=== PATIENT | female | born 1985 ===

== ENCOUNTER 2017-08-21 21:40 | Emergency (ER) | payer OTHER, SELFPAY ==
[2017-08-21 21:41] VITALS: BMI 34.6
[2017-08-21 22:07] VITALS: RESP 16; O2SAT 99
[2017-08-21 23:10] LABS: SQUAMOUS EPITHIAL 3 /hpf (0-5); URINE BACTERIA RARE (<OCC); URINE BILIRUBIN NEGATIVE (NEGATIVE); URINE BLOOD MODERATE (NEGATIVE); URINE CLARITY SLIGHTY-CLOUDY (Clear); URINE COLOR YELLOW (YELLOW); URINE GLUCOSE (UA) NEG (Normal); URINE LEUKOCYTE ESTERASE MOD Leu/uL (Negative); URINE PROTEIN NEGATIVE (NEGATIVE); URINE UROBILINOGEN 0.2-1.0 mg/dL (0.2-1.0)
--- NOTE | 2017-08-21 23:48 | ED PDOC ---
HPI: Female Pain Time Seen by Provider: 08/21/17 22:29 Chief Complaint (Nursing): Female Genitourinary Chief Complaint (Provider): Vaginal spotting History Per: Patient History/Exam Limitations: no limitations Onset/Duration Of Symptoms: Hrs Current Symptoms Are (Timing): Still Present Associated Symptoms: denies: Fever, Chills, Nausea, Vomiting, Back Pain, Chest Pain, Urinary Symptoms Alleviating Factors: None Additional History Per: Patient Additional Complaint(s): 32yo female, with EGA of 6wks, presents to ER for evaluation of vaginal bleeding since 9pm today. Patient states she had gone to her bathroom, which was poorly lit, and she tripped and fell, landing on her back and right side. She then noted mild vaginal spotting and has abdominal pain and right flank pain. She denies any associated head injury or loss of consciousness. She reports the spotting is mild and denies any clots or discharge. She offers no other medical complaints. PMD: None Abnormal Vaginal Bleeding: Yes : 3 Para: 2 Past Medical History Reviewed: Historical Data, Nursing Documentation, Vital Signs Vital Signs: Last Vital Signs Temp 98.3 F 08/21/17 22:02 Pulse 81 08/21/17 22:02 Resp 16 08/21/17 22:02 BP 121/76 08/21/17 22:02 Pulse Ox 99 08/21/17 22:02 - Medical History PMH: Anemia Denies: HIV, Chronic Kidney Disease - Surgical History Surgical History: Appendectomy - Family History Family History: States: No Known Family Hx, Unknown Family Hx - Immunization History Hx Tetanus Toxoid Vaccination: No Hx Influenza Vaccination: No Hx Pneumococcal Vaccination: No - Home Medications Home Medications: Ambulatory Orders Medication Instructions Recorded Pnv with Ca,No.72/Iron/FA 1 tab PO DAILY #90 tab 08/15/14 [ Vitamins Plus] [id number] [ Plus 1 tab PO DAILY #30 tab 08/27/14 W/ Iron] Docusate [Colace] 100 mg PO BID PRN #30 cap 03/18/15 Ibuprofen [Motrin] 400 mg PO Q6 PRN #30 tab 03/18/15 - Allergies Allergies/Adverse Reactions: Allergies Allergy/AdvReac Type Severity Reaction Status Date / Time No Known Allergies Allergy Verified 03/16/15 10:32 Review of Systems ROS Statement: Except As Marked, All Systems Reviewed And Found Negative Constitutional: Negative for: Fever, Chills Gastrointestinal: Positive for: Abdominal Pain, Other (right flank pain) Genitourinary Female: Positive for: Vaginal Bleeding (spotting, mild). Negative for: Vaginal Discharge Neurological: Negative for: Other (head injury, loc) Physical Exam - Reviewed Nursing Documentation Reviewed: Yes Vital Signs Reviewed: Yes - Physical Exam Appears: Positive for: Non-toxic, No Acute Distress Head Exam: Positive for: ATRAUMATIC, NORMAL INSPECTION, NORMOCEPHALIC Skin: Positive for: Normal Color, Warm Eye Exam: Positive for: Normal appearance, EOMI Neck: Positive for: Normal, Supple Cardiovascular/Chest: Positive for: Regular Rate, Rhythm Respiratory: Positive for: Normal Breath Sounds Gastrointestinal/Abdominal: Positive for: Normal Exam, Soft. Negative for: Tenderness, Mass, Guarding Back: Positive for: Normal Inspection Extremity: Positive for: Normal ROM. Negative for: Deformity Neurologic/Psych: Positive for: Alert, Oriented. Negative for: Motor/Sensory Deficits - Laboratory Results Result Diagrams: 08/21/17 23:47 - ECG O2 Sat by Pulse Oximetry: 99 (RA) Pulse Ox Interpretation: Normal Medical Decision Making Medical Decision Making: Impression: Vaginal bleeding, fall in setting of Plan: -- Labs -- Urinalysis -- US OB Transvaginal Time: 3 US OB Transvaginal FINDINGS: Gestation: Single live intrauterine gestation. heart rate of 169 beats per minute. [place]-rump length of 2.0 cm, correlating with gestational age of 8 weeks 4 days. Uterus/cervix: No subchorionic hemorrhage. Closed cervix. Ovaries: Normal ovaries. No adnexal masses. Free fluid: No significant free fluid. IMPRESSION: 1. Single live intrauterine gestation. Time: 216 patient reports improvement in pain after taking Tylenol. Patient informed of US results and expresses undertsanding; instructed to follow up with OBGYn in 2- 3 days. Stable for discharge home. Diagnosis: Threatened miscarriage Scribe Attestation: Documented by Jillian Zuluaga, acting as a scribe for Kwesi Dickson MD Provider Scribe Attestation: All medical record entries made by the Scribe were at my direction and personally dictated by me. I have reviewed the chart and agree that the record accurately reflects my personal performance of the history, physical exam, medical decision making, and the department course for this patient. I have also personally directed, reviewed, and agree with the discharge instructions and disposition. Disposition - Clinical Impression Clinical Impression: Threatened - Disposition [facility] Disposition: Routine/Home Disposition Time: 02:17 Condition: STABLE Instructions: Bleeding With Forms: [facility] (Yi) Print Language: TURKISH
[2017-08-21 23:54] LABS: BASO # 0.1 K/uL (0.0-0.2); BASO % 0.9 % (0.0-2.0); EOS # 0.5 K/uL (0.0-0.7); EOS % 4.3 % (0.0-4.0); HEMOGLOBIN 11.5 g/dL (12.0-16.0); LYMPH # 2.4 K/uL (1.0-4.3); LYMPH % 22.5 % (20.0-40.0); MEAN CELL VOLUME 77.8 fl (81.0-99.0); MEAN CORPUSCULAR HEMOGLOBIN 25.4 pg (27.0-31.0); MEAN CORPUSCULAR HGB CONC 32.6 g/dL (33.0-37.0); MEAN PLATELET VOLUME 9.3 fl (7.2-11.7); MONO # 0.7 K/uL (0.0-0.8); MONO % 6.4 % (0.0-10.0); NEUT % 65.9 % (50.0-75.0); RBC 4.54 Mil/uL (3.80-5.20); RED CELL DISTRIBUTION WIDTH 16.3 % (11.5-14.5); WHITE BLOOD COUNT 10.7 K/uL (4.8-10.8)
--- NOTE | 2017-08-22 00:05 | US ---
EXAM: US , Transvaginal CLINICAL HISTORY: 32 years old, female; Signs and symptoms; Lmp or gestational age (in weeks): 06/21/17; Antepartum complications; Hemorrhage; ; Additional info: Preg vag bld TECHNIQUE: Real-time transvaginal obstetrical ultrasound of the maternal pelvis and a first trimester with image documentation. Transvaginal imaging was used for better evaluation of the fetus and adnexa. COMPARISON: No relevant prior studies available. FINDINGS: Gestation: Single live intrauterine gestation. heart rate of 169 beats per minute. [place]-rump length of 2.0 cm, correlating with gestational age of 8 weeks 4 days. Uterus/cervix: No subchorionic hemorrhage. Closed cervix. Ovaries: Normal ovaries. No adnexal masses. Free fluid: No significant free fluid. IMPRESSION: 1. Single live intrauterine gestation.
[2017-08-22 03:20] VITALS: BP 122/76; PULSE 82; TEMP 98.1
== END 2017-08-22 02:24 | disposition home or self-care (01) ==
LOC: H.ER 21:40
DX: O20.0 Threatened abortion (principal); Z3A.08 8 weeks gestation of pregnancy

== ENCOUNTER 2017-11-21 16:28 | Emergency (ER) | payer SELFPAY ==
[2017-11-21 17:39] VITALS: BMI 35.4
[2017-11-21 18:39] LABS: SQUAMOUS EPITHIAL 5 /hpf (0-5); URINE BILIRUBIN NEGATIVE (NEGATIVE); URINE BLOOD SMALL (NEGATIVE); URINE CLARITY CLOUDY (Clear); URINE COLOR YELLOW (YELLOW); URINE GLUCOSE (UA) NEG (Normal); URINE LEUKOCYTE ESTERASE TRACE Leu/uL (Negative); URINE PROTEIN NEGATIVE (NEGATIVE); URINE UROBILINOGEN 0.2-1.0 mg/dL (0.2-1.0)
--- NOTE | 2017-11-21 18:50 | US ---
Ob transvaginal Indication: Cervical length Comparison: Ob transvaginal ultrasound performed 08/21/17 Technique: Real-time ultrasound was performed through the pelvis. Findings: There is a single living fetus in breaching presentation. Amniotic fluid volume is within normal limits. Posterior placenta. The placenta is not previa. There are no adnexal masses or cysts evident. Cervical length measures approximately 5.0 cm. Measurements and calculations: Fetus has a composite sonographic age of 22 weeks 6 days. This calculation is based on the biparietal diameter, head circumference, abdominal circumference, and femur length. Estimated heart rate 147.2 beats per min. Impression: Cervical length measures approximately 5.0 cm. Single living fetus with a composite sonographic age of 22 weeks 6 days. Estimated heart rate 147.2 beats per min. The study was performed for the emergent evaluation of pain/bleeding, and the whole anatomic survey of the fetus was not performed. This should be performed on an outpatient elective basis as clinically warranted.
--- NOTE | 2017-11-21 19:48 | OBHP ---
Datetime: 11/21/2017 17:15 IP Adm Impression: , intrauterine IP Admit Plan: Observation/Evaluation Admit Comment, IP Provider: HPI: 32 y/o with EGA 21.6 weeks, EDC 03/28/18 who presents sent from the [facility] due to c/o vaginal spotting x 2, yesterday evening and today AM, also patient c/o "pelv ic heaviness" since yesterday. Denies CONTX, LOF. Reports last sexual activity 4 days ago, Positive F M today. OBGYN: Patient reports Hx of delivery at 36 wks and approximately 32 wks in her previous p regnancies. Recent Cervicitis 2/2 Chlamydia infection in this , and patient states that she has not started treatment yet, but Rx in pharmacy for her and partner to get tx. ROS: as per HPI care provider: Dr Almanzar at [facility] PMH: Denies FMH: None Social: Denies Tob/ETOH/RecDrug SURG: Appendectomy Allergies: NKA MEDS: PNV, ASA, DHL LABS: Positive Chlamydia NAAT, HIV negative, HBsAg negative, Rubella no results, RPR neg, ABORh O+ A/P 32 y/o with EGA 21.6 wks, EDC 03/28/18 with vaginal spotting since yesterday and cervicit is 2/2 to Chlamydia infection, also this patient has hx of 2 deliveries. Impression: R/o labor vs vaginal spotting 2/2 cervicitis -U/A stat -Transvaginal US for Cervical length eval -Monitor maternal CONTX and FHR Case discussed with attending Dr Luna. Demi Cordero MD PGY1 Addendum: I saw examined patient presentation. Patient with cervicitis and chlamydia infection. Patient tiffany es any complaints at this time other than spotting. Cervical length normal. Patient has prescription for antibiotics. Patient will follow up in clinic this week. Patient given labor and bleeding precautions. Cheryl FHR - Baseline A Provider: 140s via sono Comments, ACOG Physical Exam: GEN: NAD HEENT: Normocephalic, EOMI RESP: CTA b/l CV: RRR, no murmurs noted ABD: Gravid, soft, nontender LE: No edema. IP Hx Assessment: The History has been Reviewed and is Current IP Chief Complaint: Vaginal bleeding
[2017-11-22 00:52] VITALS: BP 119/79; PULSE 114; O2SAT 99
== END 2017-11-21 19:25 | disposition home or self-care (01) ==
LOC: H.EROB2 16:28
DX: O26.852 Spotting complicating pregnancy, second trimester (principal); O09.32 Supervision of pregnancy with insufficient antenatal care, second trimester; Z3A.21 21 weeks gestation of pregnancy; O23.512 Infections of cervix in pregnancy, second trimester; O23.592 Infection of other part of genital tract in pregnancy, second trimester; A56.01 Chlamydial cystitis and urethritis

== ENCOUNTER 2018-01-05 02:00 | Emergency (ER) | payer SELFPAY ==
[2018-01-05 02:16] VITALS: BMI 36.8
[2018-01-05] MEDS ORDERED: Albuterol-Ipratrop 3 mg / 0.5 (3 ml) UD INH STA ×3 (02:19)
--- NOTE | 2018-01-05 02:38 | ED PDOC ---
HPI: SOB/CHF/COPD Time Seen by Provider: 01/05/18 02:05 Chief Complaint (Nursing): Respiratory Distress Chief Complaint (Provider): Wheezing History Per: Patient History/Exam Limitations: no limitations Onset/Duration Of Symptoms: Days (x3) Current Symptoms Are (Timing): Still Present Current Respiratory Medications: Albuterol Additional Complaint(s): 32 y/o female is 28 weeks with a PMHx of asthma presents to the ED stating she has been having wheezing and a dry cough for the past three days. Patient additionally reports of using an inhaler with no relief. Patient additionally reports of hearing wheezing in her chest. Denies fevers, chills, abdominal pain, vaginal bleeding and vaginal discharge. Patient reports of feeling her baby moving. PMD: Non [facility] Provider Past Medical History Reviewed: Historical Data, Nursing Documentation, Vital Signs Vital Signs: Last Vital Signs Temp 98.5 F 01/05/18 02:16 Pulse 104 H 01/05/18 02:16 Resp 20 01/05/18 02:16 BP 128/75 01/05/18 02:16 Pulse Ox 92 L 01/05/18 02:16 - Medical History PMH: Anemia Denies: HIV, Chronic Kidney Disease - Surgical History Surgical History: Appendectomy - Family History Family History: States: Unknown Family Hx - Immunization History Hx Tetanus Toxoid Vaccination: No Hx Influenza Vaccination: No Hx Pneumococcal Vaccination: No - Home Medications Home Medications: Ambulatory Orders Medication Instructions Recorded Pnv with Ca,No.72/Iron/FA 1 tab PO DAILY #90 tab 08/15/14 [ Vitamins Plus] [id number] [ Plus 1 tab PO DAILY #30 tab 08/27/14 W/ Iron] Docusate [Colace] 100 mg PO BID PRN #30 cap 03/18/15 Ibuprofen [Motrin] 400 mg PO Q6 PRN #30 tab 03/18/15 Prednisone [Deltasone] 40 mg PO DAILY 3 Days #6 tablet 01/05/18 - Allergies Allergies/Adverse Reactions: Allergies Allergy/AdvReac Type Severity Reaction Status Date / Time No Known Allergies Allergy Verified 01/05/18 02:16 Review of Systems ROS Statement: Except As Marked, All Systems Reviewed And Found Negative Constitutional: Negative for: Fever, Chills Respiratory: Positive for: Cough, Wheezing Gastrointestinal: Negative for: Abdominal Pain Genitourinary Female: Negative for: Vaginal Discharge, Vaginal Bleeding Physical Exam - Reviewed Nursing Documentation Reviewed: Yes Vital Signs Reviewed: Yes - Physical Exam Appears: Positive for: No Acute Distress Head Exam: Positive for: ATRAUMATIC, NORMOCEPHALIC Skin: Positive for: Normal Color, Warm, Dry Eye Exam: Positive for: Normal appearance, EOMI, PERRL Neck: Positive for: Normal, Painless ROM Cardiovascular/Chest: Positive for: Regular Rate, Rhythm. Negative for: Murmur Respiratory: Positive for: Wheezing (BILATERAL). Negative for: Respiratory Distress Gastrointestinal/Abdominal: Positive for: Other (Gravid Uterus). Negative for: Tenderness Back: Positive for: Normal Inspection. Negative for: L CVA Tenderness, R CVA Tenderness Extremity: Positive for: Normal ROM. Negative for: Pedal Edema, Deformity Neurologic/Psych: Positive for: Alert, Oriented. Negative for: Motor/Sensory Deficits - ECG O2 Sat by Pulse Oximetry: 92 (RA) Pulse Ox Interpretation: Normal Medical Decision Making Medical Decision Making: Time: 0220 A/P: 32 y/o female with mild asthma exacerbation and -- Not concerned for pulmonary embolism, pneumonia, pneumothorax and any other acute illnesses. -- Patient speaking full sentences, no respiratory distress -- Duoneb 3mg/0.5mg (3ml) UD 3 ml INH -- Duoneb 3mg/0.5mg (3ml) UD 3 ml INH -- Duoneb 3mg/0.5mg (3ml) UD 3 ml INH -- PredniSONE 40 mg PO -- Peak Flow Pre/Post Tx 315AM --Patient is feeling much better --Vitals improved --Will discharge with prednisone --Advised patient to followup with OB and PMD --Very well appearing upon discharge Scribe Attestation: Documented by Kiesha Newby, acting as a scribe for Bob Solano MD. Provider Scribe Attestation: All medical record entries made by the Scribe were at my direction and personally dictated by me. I have reviewed the chart and agree that the record accurately reflects my personal performance of the history, physical exam, medical decision making, and the department course for this patient. I have also personally directed, reviewed, and agree with the discharge instructions and disposition. Disposition - Clinical Impression Clinical Impression: Asthma exacerbation - Patient ED Disposition Is Patient to be Admitted: No - Disposition Referrals: [facility] [Outside] [facility] [Outside] Disposition: Routine/Home Disposition Time: 03:19 Condition: STABLE Prescriptions: Prednisone [Deltasone] 40 mg PO DAILY 3 Days #6 tablet Instructions: Asthma in Adults Forms: [employer] (Romanian) Print Language: NIGERIEN
[2018-01-05 03:21] VITALS: BP 122/74; PULSE 102; RESP 18; TEMP 98.4
[2018-01-05 03:22] VITALS: O2SAT 98
== END 2018-01-05 03:28 | disposition home or self-care (01) ==
LOC: H.ER 02:00
DX: O99.513 Diseases of the respiratory system complicating pregnancy, third trimester (principal); J45.901 Unspecified asthma with (acute) exacerbation; J44.9 Chronic obstructive pulmonary disease, unspecified; Z3A.28 28 weeks gestation of pregnancy

== ENCOUNTER 2018-01-21 22:39 | Observation (INO) | payer SELFPAY ==
[2018-01-21 22:40] VITALS: BMI 36.8
[2018-01-21] MEDS ORDERED: Albuterol 0.042% Inhal Sol (1.25 mg/3 mL) UD ONE (23:49)
[2018-01-22] MEDS ORDERED: Albuterol-Ipratrop 3 mg / 0.5 (3 ml) UD IH STA ×3 (00:11→02:56)
[2018-01-22] MEDS ORDERED: Albuterol 0.083% Inhal Sol (2.5 mg/3 mL) UD INH ONE ×2 (00:12→23:21)
--- NOTE | 2018-01-22 00:15 | ED PDOC ---
HPI: SOB/CHF/COPD Time Seen by Provider: 01/21/18 23:47 Chief Complaint (Nursing): Cough, Cold, Congestion Chief Complaint (Provider): cough, sob History Per: Patient, Lead Cook (jason #[id number]) History/Exam Limitations: no limitations Onset/Duration Of Symptoms: Days (2) Current Symptoms Are (Timing): Still Present Initiating Event: Out Of Medications Current Respiratory Medications: Albuterol Additional Complaint(s): 32 y/o female history of asthma, approximately 30 weeks gestation, presents for evaluation of cough and shortness of breath x 2 days. Patient states her Albuterol inhaler stopped working today. States symptoms similar to previous asthma flare-ups, and that the medications that she was given when she came to ED a few weeks ago helped her symptoms. Denies fever, nasal congestion/discharge, chest pain, palpitations, leg pain/swelling. Patient also reports lower pelvis pain radiating to back that started just now. Denies nausea/vomiting, vaginal bleeding/discharge. Past Medical History Reviewed: Historical Data, Nursing Documentation, Vital Signs Vital Signs: Last Vital Signs Temp 98.7 F 01/21/18 23:27 Pulse 121 H 01/21/18 23:27 Resp 22 01/21/18 23:27 BP 134/81 01/21/18 23:27 Pulse Ox 94 L 01/21/18 23:27 - Medical History PMH: Anemia, Asthma Denies: HIV, Chronic Kidney Disease - Surgical History Surgical History: Appendectomy - Family History Family History: States: Unknown Family Hx - Immunization History Hx Tetanus Toxoid Vaccination: No Hx Influenza Vaccination: No Hx Pneumococcal Vaccination: No - Home Medications Home Medications: Ambulatory Orders Medication Instructions Recorded Pnv with Ca,No.72/Iron/FA 1 tab PO DAILY #90 tab 08/15/14 [ Vitamins Plus] [id number] [ Plus 1 tab PO DAILY #30 tab 08/27/14 W/ Iron] Docusate [Colace] 100 mg PO BID PRN #30 cap 03/18/15 Ibuprofen [Motrin] 400 mg PO Q6 PRN #30 tab 03/18/15 Prednisone [Deltasone] 40 mg PO DAILY 3 Days #6 tablet 01/05/18 - Allergies Allergies/Adverse Reactions: Allergies Allergy/AdvReac Type Severity Reaction Status Date / Time No Known Allergies Allergy Verified 01/21/18 23:27 Review of Systems ROS Statement: Except As Marked, All Systems Reviewed And Found Negative Respiratory: Positive for: Cough, Shortness of Breath, Wheezing Physical Exam - Reviewed Nursing Documentation Reviewed: Yes Vital Signs Reviewed: Yes - Physical Exam Appears: Positive for: Well, Non-toxic, Uncomfortable (audible wheezing) Head Exam: Positive for: ATRAUMATIC, NORMAL INSPECTION, NORMOCEPHALIC Skin: Positive for: Normal Color Eye Exam: Positive for: Normal appearance ENT: Positive for: Normal ENT Inspection Cardiovascular/Chest: Positive for: Regular Rate, Rhythm Respiratory: Positive for: Wheezing (diffuse expiratory wheezing) Gastrointestinal/Abdominal: Positive for: Bowel Sounds, Soft, Tenderness (suprapubic, LLQ) Back: Positive for: Normal Inspection Extremity: Positive for: Normal ROM Neurologic/Psych: Positive for: Alert, Oriented (x3) - Laboratory Results Result Diagrams: 01/22/18 04:06 - ECG ECG: Positive for: Viewed By Me (reviewed by ED attending) ECG Rhythm: Positive for: Sinus Tachycardia O2 Sat by Pulse Oximetry: 94 - Progress ED Course And Treament: duonebs, prednisone 60mg PO On re-eval, patient reports little improvement of symptoms. Diffuse wheezing still noted States lower abdominal pain nearly resolved 3:[address] Delgado, Target Developer on-call; states if pain improved patient does not require emergent monitoring at this time, can be called on consult if pain returns or worsens IV rocephin, IV zithromax doses ordered Case discussed with Dr. Long, Hospitalist on-call, for placement in observation Disposition - Clinical Impression Clinical Impression: Asthma exacerbation, Bronchitis - Disposition Disposition Time: 04:00 Condition: FAIR
[2018-01-22] MEDS ORDERED: Albuterol-Ipratrop 3 mg / 0.5 (3 ml) UD ONE (02:52)
[2018-01-22 04:16] LABS: BASO # 0.1 K/uL (0.0-0.2); BASO % 0.6 % (0.0-2.0); EOS # 0.3 K/uL (0.0-0.7); EOS % 1.6 % (0.0-4.0); LYMPH # 1.3 K/uL (1.0-4.3); LYMPH % 7.3 % (20.0-40.0); MEAN CELL VOLUME 80.6 fl (81.0-99.0); MEAN CORPUSCULAR HEMOGLOBIN 27.2 pg (27.0-31.0); MEAN CORPUSCULAR HGB CONC 33.7 g/dL (33.0-37.0); MEAN PLATELET VOLUME 9.4 fl (7.2-11.7); MONO # 0.3 K/uL (0.0-0.8); MONO % 1.7 % (0.0-10.0); NEUT # 15.4 K/uL (1.8-7.0); NEUT % 88.8 % (50.0-75.0); PLATELET COUNT 273 K/uL (130-400); RBC 4.79 Mil/uL (3.80-5.20); RED CELL DISTRIBUTION WIDTH 17.3 % (11.5-14.5); WHITE BLOOD COUNT 17.4 K/uL (4.8-10.8)
[2018-01-22] MEDS ORDERED: Azithromycin 500 MG in NS 250 ML IVPB STA (04:32)
[2018-01-22] MEDS ORDERED: Azithromycin 500 MG IV IVPB ONE (04:50)
[2018-01-22 05:27] LABS: ALBUMIN 3.7 g/dL (3.5-5.0); ALT/SGPT 24 U/L (9-52); AST/SGOT 23 U/L (14-36); BLOOD UREA NITROGEN 7 mg/dl (7-17); GFR NON-AFRICAN AMERICAN > 60
--- NOTE | 2018-01-22 05:34 | CP.PCM.HP ---
Addendum entered and electronically signed by Jg Tamez DPM 01/26/18 09:05: Addendum entered by Becka West MD 01/22/18 15:33: Additional Note: , 30 wks AOG + Heart tone and movement - OB consult HYperglycemia sec to Steroids Addendum entered and electronically signed by Jg Tamez DPM 01/22/18 10:39: 32 yo female seen and evaluated resting comfortably at bedside with Dr. West. States she is still wheezing but is breathing better than while in ED. States she is not having any flu-like symptoms, denies any nausea, fever, chills, vomiting. States she has not received a flu shot yet. Reports some tingling and feelings of numbness in her legs. States this is her third . Has no new acute complaints today. States she sees us in the [facility]. Instructed to lie on side while in bed and continue to wear nasal cannula. Exam: Wheezing noted b/l heartbeat appreciated #. Status Asthmaticus. - Albuterol Q4H around the clock and Q2H PRN SOB - Methylprednisolone IVP Q6H - 2L Oxygen - IV fluid #. Leukocytosis caused by Steroids - follow CBC #. Hypokalemia caused by Beta 2 agonist(Albuterol) - Administer Supplemental Potassium Chloride #. Code Status: Full Original Note: History of Present Illness - History of Present Illness History of Present Illness: PMD: none Chief complaint: SOB/Wheezing The patient was seen and examined In the ED HPI: 32 years old female, 30 months , comes referring SOB, wheezing, coughing with chest congestion for 2 days. She ran out of Albuterol Inhalers and her SOB became worse. She refer hx of seasonal Asthma but has been having SOB and wheezing daily for the past week being relieved with her nebulizer. No fever, chest pain, nausea, vomits nor abdominal pains. PMH: Anemia, Asthma PSH: Appendectomy SH: No illegal drug use; No Alcohol; No smoking FH: States: Unknown Family Hx Allergies: NKDA Medication: Reviewed Present on Admission - Present on Admission Any Indicators Present on Admission: No History of DVT/PE: No History of Uncontrolled Diabetes: No Urinary Catheter: No Decubitus Ulcer Present: No Review of Systems - Constitutional Constitutional: absent: Chills, Fever, Headache, Lethargy - EENT Eyes: absent: Floaters, Requires Corrective Lenses Ears: absent: Decreased Hearing, Ear Discharge, Ear Pain, Tinnitus, Abnormal Hearing Nose/Mouth/Throat: absent: Epistaxis, Nasal Discharge, Sinus Pain, Sinus Pressure - Cardiovascular Cardiovascular: Dyspnea. absent: Chest Pain, Edema - Respiratory Respiratory: Cough, Dyspnea, Wheezing. absent: Stridor - Gastrointestinal Gastrointestinal: absent: Abdominal Pain, Constipation, Diarrhea, Nausea, Vomiting - Genitourinary Genitourinary: absent: Dysuria, Flank Pain, Urinary Frequency - Musculoskeletal Musculoskeletal: absent: Joint Swelling, Muscle Cramps, Myalgias, Neck Pain - Integumentary Integumentary: absent: Pruritus, Rash, Skin Ulcer, Sores, Striae, Swelling - Neurological Neurological: absent: Confusion, Dizziness, Focal Weakness, Headaches, Pares thesias - Psychiatric Psychiatric: absent: Anxiety, Depression, Panic Attacks - Endocrine Endocrine: absent: Palpitations, Polydipsia, Polyphagia, Polyuria - Hematologic/Lymphatic Hematologic: absent: Easy Bleeding, Easy Bruising Past Patient History - Infectious Disease Hx of Infectious Diseases: None - Tetanus Immunizations Tetanus Immunization: Unknown - Past Medical History & Family History Past Medical History?: Yes - Past Social History Smoking Status: Never Smoked Chewing Tobacco Use: No Cigar Use: No Alcohol: None Drugs: Denies Home Situation {Lives}: With Family - CARDIAC Hx Cardiac Disorders: No - PULMONARY Hx Asthma: Yes - NEUROLOGICAL Hx Neurological Disorder: No - HEENT Hx HEENT Problems: No - RENAL Hx Chronic Kidney Disease: No - ENDOCRINE/METABOLIC Hx Endocrine Disorders: No - HEMATOLOGICAL/ONCOLOGICAL Hx Anemia: Yes Hx Human Immunodeficiency Virus (HIV): No - INTEGUMENTARY Hx Dermatological Problems: No - MUSCULOSKELETAL/RHEUMATOLOGICAL Hx Musculoskeletal Disorders: No Hx Falls: No - GASTROINTESTINAL Hx Gastrointestinal Disorders: No - GENITOURINARY/GYNECOLOGICAL Hx Genitourinary Disorders: No - PSYCHIATRIC Hx Psychophysiologic Disorder: No Hx Substance Use: No - SURGICAL HISTORY Hx Appendectomy: Yes - ANESTHESIA Hx Anesthesia: Yes Hx Anesthesia Reactions: No Hx Malignant Hyperthermia: No Meds Allergies/Adverse Reactions: Allergies Allergy/AdvReac Type Severity Reaction Status Date / Time No Known Allergies Allergy Verified 01/21/18 23:27 Physical Exam - Constitutional Appears: In Acute Distress - Head Exam Head Exam: ATRAUMATIC, NORMAL INSPECTION, NORMOCEPHALIC - Eye Exam Eye Exam: EOMI, Normal appearance Pupil Exam: NORMAL ACCOMODATION, PERRL - ENT Exam ENT Exam: Mucous Membranes Moist, Normal Exam, Normal External Ear Exam - Neck Exam Neck exam: Positive for: Full Rom, Normal Inspection. Negative for: Lymphadenopathy, Tenderness - Respiratory Exam Respiratory Exam: Wheezes - Cardiovascular Exam Cardiovascular Exam: REGULAR RHYTHM, RRR, +S1, +S2 - GI/Abdominal Exam GI & Abdominal Exam: Normal Bowel Sounds, Soft. absent: Organomegaly, Tenderness - Rectal Exam Rectal Exam: Deferred - Extremities Exam Extremities exam: Positive for: normal inspection. Negative for: calf tenderness, full ROM - Back Exam Back exam: NORMAL INSPECTION. absent: CVA tenderness (L), CVA tenderness (R) - Neurological Exam Neurological exam: Alert, CN II-XII Intact, Oriented x3, Reflexes Normal - Psychiatric Exam Psychiatric exam: Normal Affect, Normal Mood - Skin Skin Exam: Dry, Intact, Normal Color, Warm Results - Vital Signs Recent Vital Signs: Last Vital Signs Temp 98.7 F 01/21/18 23:27 Pulse 112 H 01/22/18 04:09 Resp 22 01/22/18 04:09 BP 134/81 01/21/18 23:27 Pulse Ox 94 L 01/22/18 05:16 - Labs Result Diagrams: 01/22/18 04:06 01/22/18 04:06 Labs: Laboratory Results - last 24 hr 01/22/18 01/22/18 01/22/18 04:06 04:06 04:06 WBC 17.4 H RBC 4.79 Hgb 13.0 Hct 38.7 MCV 80.6 L MCH 27.2 MCHC 33.7 RDW 17.3 H Plt Count 273 MPV 9.4 Neut % (Auto) 88.8 H Lymph % (Auto) 7.3 L [place] % (Auto) 1.7 Eos % (Auto) 1.6 Baso % (Auto) 0.6 Neut # (Auto) 15.4 H Lymph # (Auto) 1.3 [place] # (Auto) 0.3 Eos # (Auto) 0.3 Baso # (Auto) 0.1 Sodium 135 Potassium 3.5 L Chloride 108 H Carbon Dioxide 18 L Anion Gap 13 BUN 7 Creatinine 0.4 L Est GFR ( Amer) > 60 Est GFR (Non-Af Amer) > 60 Random Glucose 135 H Calcium 9.0 Total Bilirubin 0.7 AST 23 ALT 24 Alkaline Phosphatase 151 H D Total Protein 7.6 Albumin 3.7 Globulin 3.8 Albumin/Globulin Ratio 1.0 Influenza Typ A,B (EIA) Negative for flu a/b Assessment & Plan - Assessment and Plan (Free Text) Plan: 32 years old female, 30 months , comes referring SOB, wheezing, coughing with chest congestion for 2 days, ran out of Albuterol Inhalers. She refer having SOB and wheezing daily for the past week being relieved with her nebulizer. She ran out of Nebulizer a few days ago. No fever, chest pain, nausea, vomits nor abdominal pains. #. Status Asthmaticus. - Albuterol Q4H around the clock and Q2H PRN SOB - Methylprednisolone IVP Q6H - Oxygen - IV fluid #. Leukocytosis caused by Steroids - follow CBC #. Hypokalemia caused by Beta 2 agonist(Albuterol) - Administer Supplemental Potassium Chloride #. Code Status: Full - Date & Time Date: 01/22/18 Time: 05:34
[2018-01-22] MEDS ORDERED: Albuterol 0.083% Inhal Sol (2.5 mg/3 mL) UD INH PRN (05:39)
[2018-01-22 05:42] LABS: BANDS 4 % (0-2); LYMPHOCYTE 7 % (20-50); MONOCYTE 1 % (0-10); NEUTROPHIL 88 % (42-75); TOTAL CELLS COUNTED 100
[2018-01-22 05:43] LABS: ANISOCYTOSIS SLIGHT; PLATELET ESTIMATE NORMAL (NORMAL)
[2018-01-22 05:44] LABS: HYPOCHROMIC MODERATE; STOMATOCYTES SLIGHT
[2018-01-22] MEDS ORDERED: Sodium Chloride 0.9% 1,000 ML IV SCH (06:00)
[2018-01-22] MEDS ORDERED: cefTRIAXone (Rocephin) 1 gm Inj ONE (06:02)
[2018-01-22] MEDS ORDERED: Albuterol 0.083% Inhal Sol (2.5 mg/3 mL) UD INH SCH (08:00)
[2018-01-22] MEDS ORDERED: Potassium Chloride 20 mEq ER Tab PO ONE (09:36)
[2018-01-22] MEDS ORDERED: Albuterol-Ipratrop 3 mg / 0.5 (3 ml) UD INH PRN (10:22)
[2018-01-22 10:57] LABS: BLOOD UREA NITROGEN 7 mg/dl (7-17); CALCIUM 9.2 mg/dL (8.4-10.2); GFR NON-AFRICAN AMERICAN > 60
[2018-01-22] MEDS: Lactated Ringer's 1,000 ML IV SCH ×2 (11:01→23:19)
[2018-01-22] MEDS ORDERED: Magnesium Sulfate 1 gm in D5W 1 GM/100 ML BAG IVPB ONE (15:28)
--- NOTE | 2018-01-22 16:15 | CP.PCM.PCO ---
Addendum Addendum: 01/22/18 16:06 32 yo ,f patient at 30 weeks IUP admitted for Asthma exacerbation. Patient seen bedside, reports normal movements. doppler FHR: 144 OB fellow aware.
[2018-01-22] MEDS: Albuterol-Ipratrop 3 mg / 0.5 (3 ml) UD INH SCH ×3 (16:27→23:35)
--- NOTE | 2018-01-22 16:33 | CP.PCM.PN ---
Subjective - Date & Time of Evaluation Date of Evaluation: 01/22/18 Time of Evaluation: 04:30 - Subjective Subjective: Patient doing well currently receiving nebulizer treatment reports good movement no vaginal bleeding no leakage of fluid Objective - Vital Signs/Intake and Output Vital Signs (last 24 hours): Temp Pulse Resp BP Pulse Ox 97.7 F 117 H 20 128/65 94 L 01/22/18 08:02 01/22/18 08:09 01/22/18 10:01 01/22/18 08:02 01/22/18 08:02 - Medications Medications: Current Medications Albuterol/Ipratropium (Duoneb 3 Mg/0.5 Mg (3 Ml) Ud) 3 ml INH Q4H MIKE Azithromycin 500 mg/ Sodium (Chloride) 250 mls @ 250 mls/hr IVPB DAILY@0500 MIKE; Protocol Lactated Ringer's (Lactated Ringer's) 1,000 mls @ 150 mls/hr IV .Q6H40M MIKE Last Admin: 01/22/18 11:01 Dose: 150 mls/hr Methylprednisolone (Solu-Medrol) 60 mg IVP Q6H MIKE Last Admin: 01/22/18 12:40 Dose: 60 mg - Labs Labs: 01/22/18 04:06 01/22/18 10:43 - Head Exam Head Exam: ATRAUMATIC - Eye Exam Eye Exam: Normal appearance - Respiratory Exam Respiratory Exam: NORMAL BREATHING PATTERN Additional comments: Receiving nebulizer treatment no accessory muscles Assessment and Plan - Assessment and Plan (Free Text) Assessment: Intrauterine at 31 weeks with exacerbation of asthma Continue methylprednisone, IV antibiotics, nebulizer treatments Patient reassured medications safe in . Patient given the opportunity to ask questions all questions answered
--- NOTE | 2018-01-22 19:13 | CARD ---
APPROVED REPORT Date of service: 01/22/2018 EKG Measurement Heart [id number] <Conclusion> Sinus tachycardia Otherwise normal ECG
[2018-01-23] MEDS: Azithromycin 500 MG in Sodium Chloride 0.9% 250 ML IVPB SCH (04:16)
[2018-01-23] MEDS: Albuterol-Ipratrop 3 mg / 0.5 (3 ml) UD INH SCH ×2 (04:34→07:35)
[2018-01-23 06:26] LABS: BASO % 0.2 % (0.0-2.0); EOS % 0.1 % (0.0-4.0); HEMOGLOBIN 11.7 g/dL (12.0-16.0); LYMPH # 1.3 K/uL (1.0-4.3); LYMPH % 8.8 % (20.0-40.0); MEAN CELL VOLUME 81.3 fl (81.0-99.0); MEAN CORPUSCULAR HEMOGLOBIN 26.6 pg (27.0-31.0); MEAN CORPUSCULAR HGB CONC 32.7 g/dL (33.0-37.0); MEAN PLATELET VOLUME 9.5 fl (7.2-11.7); MONO # 0.3 K/uL (0.0-0.8); MONO % 2.2 % (0.0-10.0); NEUT # 13.6 K/uL (1.8-7.0); NEUT % 88.7 % (50.0-75.0); RBC 4.42 Mil/uL (3.80-5.20); RED CELL DISTRIBUTION WIDTH 17.6 % (11.5-14.5); WHITE BLOOD COUNT 15.4 K/uL (4.8-10.8)
[2018-01-23 06:46] LABS: ALBUMIN 3.4 g/dL (3.5-5.0); ALT/SGPT 18 U/L (9-52); AST/SGOT 18 U/L (14-36); CALCIUM 8.7 mg/dL (8.4-10.2); GFR NON-AFRICAN AMERICAN > 60
[2018-01-23 06:58] LABS: BLOOD UREA NITROGEN 6 mg/dl (7-17)
--- NOTE | 2018-01-23 07:58 | CP.PCM.PN ---
<Jg Tamez - Last Filed: 01/23/18 11:32> Subjective - Date & Time of Evaluation Date of Evaluation: 01/23/18 Time of Evaluation: 07:58 - Subjective Subjective: 32 yo patient seen and evaluated at bedside. Seen uncomfortable in bed as having trouble catching breath. States that her breathing has no improved and that she is losing her breath quickly when she tries to speak. Upon examination and interview with patient she appears short of breath while speaking and cannot speak in long sentences before losing her breath. She states she is not in any pain upon respiration and has no noticed any bloody sputum however she has been coughing a lot and has had phlegm expressed. Shes denies N/V/F/C and has no abdominal pain or chest pain today. Objective - Vital Signs/Intake and Output Vital Signs (last 24 hours): Temp Pulse Resp BP Pulse Ox 98.3 F 109 H 19 113/70 94 L 01/23/18 00:12 01/23/18 00:12 01/23/18 00:12 01/23/18 00:12 01/23/18 00:12 - Medications Medications: Current Medications Albuterol/Ipratropium (Duoneb 3 Mg/0.5 Mg (3 Ml) Ud) 3 ml INH Q4H [facility] Last Admin: 01/23/18 07:35 Dose: 3 ml Budesonide (Pulmicort Respules) 0.5 mg INH RBID MIKE Azithromycin 500 mg/ Sodium (Chloride) 250 mls @ 250 mls/hr IVPB DAILY@0500 MIKE; Protocol Last Admin: 01/23/18 04:16 Dose: 250 mls/hr Lactated Ringer's (Lactated Ringer's) 1,000 mls @ 150 mls/hr IV .Q6H40M [facility] Last Admin: 01/22/18 23:19 Dose: 150 mls/hr Methylprednisolone (Solu-Medrol) 60 mg IVP Q6H [facility] Last Admin: 01/23/18 04:51 Dose: 60 mg - Labs Labs: 01/23/18 05:45 01/23/18 05:45 - Constitutional Appears: Well, Non-toxic - Head Exam Head Exam: ATRAUMATIC, NORMOCEPHALIC - Eye Exam Eye Exam: Normal appearance - Neck Exam Neck Exam: Normal Inspection - Respiratory Exam Respiratory Exam: Wheezes (bilaterally) Additional comments: difficulty catching breath SOB when speaking - Cardiovascular Exam Cardiovascular Exam: REGULAR RHYTHM, +S1, +S2 - GI/Abdominal Exam GI & Abdominal Exam: Soft, Normal Bowel Sounds - Extremities Exam Extremities Exam: Normal Capillary Refill, Normal Inspection. absent: Calf Tenderness, Pedal Edema - Back Exam Back Exam: NORMAL INSPECTION - Neurological Exam Neurological Exam: Alert, Awake, Oriented x3 - Psychiatric Exam Psychiatric exam: Normal Affect, Normal Mood - Skin Skin Exam: Dry, Warm Assessment and Plan - Assessment and Plan (Free Text) Assessment: 32 years old female, 30 months , comes referring SOB, wheezing, coughing with chest congestion Plan: 1. Status Asthmaticus. - Albuterol Q4H around the clock and Q2H PRN SOB - Methylprednisolone IVP Q6H MIKE day 2 - Budesonide 0.5mg INH RBID MIKE day 1 - 2L NC - IV fluid 2. URI - azithromycin 500mg IVPB MIKE day 1 2. Leukocytosis caused by Steroids - follow CBC 3. Hypokalemia caused by Beta 2 agonist(Albuterol) - Administer Supplemental Potassium Chloride 4. DVT prophylaxis - lovenox 40 mg <Chris Moses - Last Filed: 01/23/18 17:14> Objective - Vital Signs/Intake and Output Vital Signs (last 24 hours): Temp Pulse Resp BP Pulse Ox 98.7 F 113 H 18 107/70 94 L 01/23/18 16:26 01/23/18 16:26 01/23/18 16:26 01/23/18 16:26 01/23/18 16:26 - Medications Medications: Current Medications Albuterol Sulfate (Albuterol 0.083% Inhal [place] (2.5 Mg/3 Ml) Ud) 2.5 mg INH RQ4 [facility] Last Admin: 01/23/18 15:16 Dose: 2.5 mg Albuterol Sulfate (Albuterol 0.083% Inhal Courtney (2.5 Mg/3 Ml) Ud) 2.5 mg INH RQ2 PRN PRN Reason: Shortness of Breath Budesonide (Pulmicort Respules) 0.5 mg INH RBID [facility] Last Admin: 01/23/18 08:20 Dose: 0.5 mg Enoxaparin Sodium (Lovenox) 40 mg SC DAILY [facility]; Protocol Last Admin: 01/23/18 16:38 Dose: 40 mg Azithromycin 500 mg/ Sodium (Chloride) 250 mls @ 250 mls/hr IVPB DAILY@0500 MIKE; Protocol Last Admin: 01/23/18 04:16 Dose: 250 mls/hr Methylprednisolone (Solu-Medrol) 60 mg IVP Q12@0400,1600 MIKE - Labs Labs: 01/23/18 05:45 01/23/18 05:45 Attending/Attestation - Attestation I have personally seen and examined this patient.: Yes I have fully participated in the care of the patient.: Yes I have reviewed all pertinent clinical information, including history, physical exam and plan: Yes Notes (Text): 1. Acute Asthma exacerbation - Albuterol Q4H around the clock and Q2H PRN SOB - Methylprednisolone IVP Q6H [facility] day 2 - Budesonide 0.5mg INH RBID MIKE day 1 2. URI - azithromycin 500mg IVPB [facility] day 1 3. Leukocytosis caused by Steroids
[2018-01-23] MEDS: Budesonide 0.5 mg/2 ml Inhal Susp UD INH SCH ×2 (08:20→19:24)
[2018-01-23] MEDS ORDERED: Albuterol 0.083% Inhal Sol (2.5 mg/3 mL) UD INH PRN (11:07)
[2018-01-23] MEDS: Albuterol 0.083% Inhal Sol (2.5 mg/3 mL) UD INH SCH ×4 (11:08→23:50)
[2018-01-23] MEDS: Lactated Ringer's 1,000 ML IV SCH (14:27)
[2018-01-23] MEDS: Enoxaparin 40 mg Syringe SC SCH (16:38)
--- NOTE | 2018-01-23 17:18 | CP.PCM.PN ---
Addendum entered and electronically signed by Yahaira Love MD 01/23/18 18:13: NST completed and reviewed: baseline FHR 140, accels present, no decels, Category I, reassuring Original Note: <Yahaira Love - Last Filed: 01/23/18 17:21> Subjective - Date & Time of Evaluation Date of Evaluation: 01/23/18 Time of Evaluation: 17:15 - Subjective Subjective: 32 year old at 30.6 weeks (confirmed via 1st trimester ultrasound, JOSE 03/28) admitted for asthma exacerbation seen bedside. She reports good movement and denies leakage of fluid or vaginal bleeding. No new complaints. Objective - Vital Signs/Intake and Output Vital Signs (last 24 hours): Temp Pulse Resp BP Pulse Ox 98.7 F 113 H 18 107/70 94 L 01/23/18 16:26 01/23/18 16:26 01/23/18 16:26 01/23/18 16:26 01/23/18 16:26 - Medications Medications: Current Medications Albuterol Sulfate (Albuterol 0.083% Inhal [place] (2.5 Mg/3 Ml) Ud) 2.5 mg INH RQ4 MIKE Last Admin: 01/23/18 15:16 Dose: 2.5 mg Albuterol Sulfate (Albuterol 0.083% Inhal [place] (2.5 Mg/3 Ml) Ud) 2.5 mg INH RQ2 PRN PRN Reason: Shortness of Breath Budesonide (Pulmicort Respules) 0.5 mg INH RBID MIKE Last Admin: 01/23/18 08:20 Dose: 0.5 mg Enoxaparin Sodium (Lovenox) 40 mg SC DAILY MIKE; Protocol Last Admin: 01/23/18 16:38 Dose: 40 mg Azithromycin 500 mg/ Sodium (Chloride) 250 mls @ 250 mls/hr IVPB DAILY@0500 SC H; Protocol Last Admin: 01/23/18 04:16 Dose: 250 mls/hr Methylprednisolone (Solu-Medrol) 60 mg IVP Q12@0400,1600 MIKE - Labs Labs: 01/23/18 05:45 01/23/18 05:45 - Constitutional Appears: Non-toxic - Respiratory Exam Respiratory Exam: Wheezes (bilateral) - GI/Abdominal Exam GI & Abdominal Exam: Normal Bowel Sounds. absent: Tenderness Additional comments: IUP - Extremities Exam Extremities Exam: Normal Inspection. absent: Pedal Edema - Neurological Exam Neurological Exam: Alert, Awake, Oriented x3 - Psychiatric Exam Psychiatric exam: Normal Affect, Normal Mood - Skin Skin Exam: Intact, Normal Color, Warm Assessment and Plan - Assessment and Plan (Free Text) Assessment: 32 year old at 30.6 weeks (confirmed via 1st trimester ultrasound, JOSE 03/28) admitted for asthma exacerbation Asthma Exacerbation -Continue methylprednisone, IV antibiotics, nebulizer treatments -NST Q12 Case discussed with Dr Luna <Rishabh Luna - Last Filed: 01/24/18 04:06> Objective - Vital Signs/Intake and Output Vital Signs (last 24 hours): Temp Pulse Resp BP Pulse Ox 98.6 F 95 H 19 115/70 95 01/24/18 00:21 01/24/18 00:21 01/24/18 00:21 01/24/18 00:21 01/24/18 00:21 - Medications Medications: Current Medications Albuterol Sulfate (Albuterol 0.083% Inhal Courtney (2.5 Mg/3 Ml) Ud) 2.5 mg INH RQ4 MIKE Last Admin: 01/23/18 23:50 Dose: 2.5 mg Albuterol Sulfate (Albuterol 0.083% Inhal [place] (2.5 Mg/3 Ml) Ud) 2.5 mg INH RQ2 PRN PRN Reason: Shortness of Breath Budesonide (Pulmicort Respules) 0.5 mg INH RBID [facility] Last Admin: 01/23/18 19:24 Dose: 0.5 mg Enoxaparin Sodium (Lovenox) 40 mg SC DAILY [facility]; Protocol Last Admin: 01/23/18 16:38 Dose: 40 mg Azithromycin 500 mg/ Sodium (Chloride) 250 mls @ 250 mls/hr IVPB DAILY@0500 S ; Protocol Last Admin: 01/23/18 04:16 Dose: 250 mls/hr Methylprednisolone (Solu-Medrol) 60 mg IVP Q12@0400,1600 [facility] Last Admin: 01/23/18 17:43 Dose: 60 mg - Labs Labs: 01/23/18 05:45 01/23/18 05:45 Assessment and Plan - Assessment and Plan (Free Text) Plan: Addendum: Nonstress test reactive. I saw patient and discussed plan. All patient questions answered. Agree with above noted.
[2018-01-24 00:21] VITALS: O2SAT 95
[2018-01-24] MEDS: Azithromycin 500 MG in Sodium Chloride 0.9% 250 ML IVPB SCH (04:18)
[2018-01-24] MEDS: Albuterol 0.083% Inhal Sol (2.5 mg/3 mL) UD INH SCH ×3 (05:07→11:37)
[2018-01-24 06:34] LABS: BASO # 0.1 K/uL (0.0-0.2); BASO % 0.6 % (0.0-2.0); EOS # 0.1 K/uL (0.0-0.7); EOS % 0.9 % (0.0-4.0); HEMOGLOBIN 11.4 g/dL (12.0-16.0); LYMPH # 2.4 K/uL (1.0-4.3); LYMPH % 22.2 % (20.0-40.0); MEAN CELL VOLUME 81.6 fl (81.0-99.0); MEAN CORPUSCULAR HEMOGLOBIN 26.9 pg (27.0-31.0); MEAN PLATELET VOLUME 9.5 fl (7.2-11.7); MONO # 0.7 K/uL (0.0-0.8); NEUT # 7.6 K/uL (1.8-7.0); NEUT % 70.3 % (50.0-75.0); NRBC % 0.1 % (0.0-0.0); RBC 4.24 Mil/uL (3.80-5.20); WHITE BLOOD COUNT 10.9 K/uL (4.8-10.8)
[2018-01-24 06:55] LABS: ALBUMIN 3.2 g/dL (3.5-5.0); ALT/SGPT 22 U/L (9-52); AST/SGOT 19 U/L (14-36); BLOOD UREA NITROGEN 8 mg/dl (7-17); CALCIUM 8.4 mg/dL (8.4-10.2); GFR NON-AFRICAN AMERICAN > 60
[2018-01-24] MEDS: Budesonide 0.5 mg/2 ml Inhal Susp UD INH SCH (07:24)
[2018-01-24] MEDS: Enoxaparin 40 mg Syringe SC SCH (08:25)
[2018-01-24 08:34] VITALS: BP 118/71; PULSE 117; RESP 20; TEMP 98.1
[2018-01-24] MEDS ORDERED: Potassium Chloride 20 mEq ER Tab PO ONE (08:53)
--- NOTE | 2018-01-24 12:30 | CP.PCM.DIS ---
Provider - Provider Date of Admission: 01/22/18 04:40 Attending physician: Ole Long Primary care physician: [facility] Consults: Raffi Wiseman Time Spent in preparation of Discharge (in minutes): 30 Diagnosis - Discharge Diagnosis (1) Asthma exacerbation Status: Acute (2) Bronchitis Status: Acute Hospital Course - Lab Results Lab Results: Micro Results 01/22/18 06:20 Blood-Venous Blood Culture - Preliminary NO GROWTH AFTER 48 HOURS 01/22/18 06:00 Blood-Venous Blood Culture - Preliminary NO GROWTH AFTER 48 HOURS Most Recent Lab Values WBC 10.9 K/uL (4.8-10.8) H 01/24/18 05:30 RBC 4.24 Mil/uL (3.80-5.20) 01/24/18 05:30 Hgb 11.4 g/dL (12.0-16.0) L 01/24/18 05:30 Hct 34.6 % (34.0-47.0) 01/24/18 05:30 MCV 81.6 fl (81.0-99.0) 01/24/18 05:30 MCH 26.9 pg (27.0-31.0) L 01/24/18 05:30 MCHC 33.0 g/dL (33.0-37.0) 01/24/18 05:30 RDW 18.0 % (11.5-14.5) H 01/24/18 05:30 Plt Count 245 K/uL (130-400) 01/24/18 05:30 MPV 9.5 fl (7.2-11.7) 01/24/18 05:30 Neut % (Auto) 70.3 % (50.0-75.0) 01/24/18 05:30 Lymph % (Auto) 22.2 % (20.0-40.0) 01/24/18 05:30 [place] % (Auto) 6.0 % (0.0-10.0) 01/24/18 05:30 Eos % (Auto) 0.9 % (0.0-4.0) 01/24/18 05:30 Baso % (Auto) 0.6 % (0.0-2.0) 01/24/18 05:30 Neut # (Auto) 7.6 K/uL (1.8-7.0) H 01/24/18 05:30 Lymph # (Auto) 2.4 K/uL (1.0-4.3) 01/24/18 05:30 [place] # (Auto) 0.7 K/uL (0.0-0.8) 01/24/18 05:30 Eos # (Auto) 0.1 K/uL (0.0-0.7) 01/24/18 05:30 Baso # (Auto) 0.1 K/uL (0.0-0.2) 01/24/18 05:30 Neutrophils % (Manual) 88 % (42-75) H 01/22/18 04:06 Band Neutrophils % 4 % (0-2) H 01/22/18 04:06 Lymphocytes % (Manual) 7 % (20-50) L 01/22/18 04:06 Monocytes % (Manual) 1 % (0-10) 01/22/18 04:06 Platelet Estimate Normal (NORMAL) 01/22/18 04:06 Hypochromasia (manual) Moderate 01/22/18 04:06 Anisocytosis (manual) Slight 01/22/18 04:06 Stomatocytes Slight 01/22/18 04:06 Sodium 138 mmol/l (132-148) 01/24/18 05:30 Potassium 3.3 MMOL/L (3.6-5.0) L 01/24/18 05:30 Chloride 108 mmol/L (98-107) H 01/24/18 05:30 Carbon Dioxide 20 mmol/L (22-30) L 01/24/18 05:30 Anion Gap 13 (10-20) 01/24/18 05:30 BUN 8 mg/dl (7-17) 01/24/18 05:30 Creatinine 0.4 mg/dl (0.7-1.2) L 01/24/18 05:30 Est GFR ( Amer) > 60 01/24/18 05:30 Est GFR (Non-Af Amer) > 60 01/24/18 05:30 Random Glucose 110 mg/dL (65-105) H 01/24/18 05:30 Calcium 8.4 mg/dL (8.4-10.2) 01/24/18 05:30 Phosphorus 3.7 mg/dl (2.5-4.5) 01/22/18 10:43 Magnesium 1.7 MG/DL (1.6-2.3) 01/22/18 10:43 Total Bilirubin 0.4 mg/dl (0.2-1.3) 01/24/18 05:30 AST 19 U/L (14-36) 01/24/18 05:30 ALT 22 U/L (9-52) 01/24/18 05:30 Alkaline Phosphatase 114 U/L (38-126) 01/24/18 05:30 Total Protein 6.5 G/DL (6.3-8.2) 01/24/18 05:30 Albumin 3.2 g/dL (3.5-5.0) L 01/24/18 05:30 Globulin 3.3 gm/dL (2.2-3.9) 01/24/18 05:30 Albumin/Globulin Ratio 1.0 (1.0-2.1) 01/24/18 05:30 Influenza Typ A,B (EIA) Negative for flu a/b (NEGATIVE) 01/22/18 04:06 - Hospital Course Hospital Course: 32 years old female, 30 weeks , presented to ED referring SOB, wheezing, coughing with chest congestion. Patient was admitted and placed on duonebs WAYNE and albuterol PRN. Patient was rx Azithromycin 500 mg for URI/bronchitis. Patient was not improving initially and was placed on budesonide and steroids IV Q12 WAYNE. She was also d/c duonebs and started on albuterol Q4 wayne and albuterol Q2 PRN. Patient stable saturating 95 on room air when previously using 2L nasal cannula. CLERICAL RECEPTIONIST consulted stated to continue the steroid and IV abx as well as nebulizer treatment. Patient shows great improvement and not short of breath. Patient is stable for discharge and will go home on PO steroids, zithromax, and duonebs. - Date & Time of H&P Date of H&P: 01/24/18 Time of H&P: 12:30 Discharge Exam - Head Exam Head Exam: ATRAUMATIC, NORMOCEPHALIC - Eye Exam Eye Exam: Normal appearance - ENT Exam ENT Exam: Mucous Membranes Moist - Neck Exam Neck exam: Normal Inspection - Respiratory Exam Respiratory Exam: Wheezes (improved), NORMAL BREATHING PATTERN - Cardiovascular Exam Cardiovascular Exam: REGULAR RHYTHM, +S1, +S2 - GI/Abdominal Exam GI & Abdominal Exam: absent: Guarding, Tenderness - Extremities Exam Extremities exam: full ROM, normal capillary refill, pedal pulses present - Neurological Exam Neurological exam: Alert, Oriented x3 - Psychiatric Exam Psychiatric exam: Normal Affect, Normal Mood - Skin Skin Exam: Intact, Normal Color, Warm Discharge Plan - Follow Up Plan Condition: FAIR Disposition: HOME/ ROUTINE Instructions: Asthma, Adult (DC), Acute Bronchitis, Adult (DC), Asthma and , - The Seventh Month, - The Eighth Month, Asthma (DC) Additional Instructions: follow up with CLERICAL RECEPTIONIST, primary MD 1 week Referrals: Derek Delgado DO [Staff Provider] - Chaz Wiseman MD [Staff Provider] - Clinical Quality Measures - Date & Time of Discharge Summary Date of Discharge Summary: 01/24/18 Time of Discharge Summary: 12:31
[2018-01-24] MEDS ORDERED: Influenza Vaccine 60 MCG/0.5 ML SYR (3 yr & up) IM ONE (14:40)
== END 2018-01-24 15:57 | disposition home or self-care (01) ==
LOC: H.ER 22:39 → H.ERHOLD 01-22 04:40 → H.MEDSURG1 01-22 06:42
PROVIDERS: ADMIT Internal Medicine; ATTEND Internal Medicine
DX: O99.513 Diseases of the respiratory system complicating pregnancy, third trimester (principal); J45.52 Severe persistent asthma with status asthmaticus; J06.9 Acute upper respiratory infection, unspecified; E87.6 Hypokalemia; D72.828 Other elevated white blood cell count; Z3A.31 31 weeks gestation of pregnancy
CPT/HCPCS: 36415; 80053; 83735; 84100; 85025; 87040; 87804; 93005; 94150; 94640; 96365; 96366; 96367; 96372; 96375; 96376; 99284; G0378; J0456; J0696; J1650; J2930; J3475; J7030; J7050; J7120

== ENCOUNTER 2018-02-25 09:51 | Emergency (ER) | payer SELFPAY ==
[2018-02-25 10:26] VITALS: BMI 40.0
[2018-02-25] MEDS ORDERED: Lactated Ringer's 1,000 ML IV ONE ×2 (10:26→10:27)
[2018-02-25 10:49] VITALS: TEMP 98
[2018-02-25 10:53] LABS: URINE BILIRUBIN NEGATIVE (NEGATIVE); URINE BLOOD NEGATIVE (NEGATIVE); URINE CLARITY SLIGHTY-CLOUDY (Clear); URINE COLOR STRAW (YELLOW); URINE GLUCOSE (UA) NEG (Normal); URINE LEUKOCYTE ESTERASE NEG Leu/uL (Negative); URINE PROTEIN NEGATIVE (NEGATIVE); URINE UROBILINOGEN 0.2-1.0 mg/dL (0.2-1.0)
--- NOTE | 2018-02-26 08:28 | OBHP ---
Datetime: 02/25/2018 10:37 IP Adm Impression: , intrauterine IP Admit Plan: Observation/Evaluation Admit Comment, IP Provider: 32 y/o @ 35.4wks w/JOSE of 03/28/2018 based on 1st trimester ultr asound c/o contractions since 915 this am. Patient went to clinic,and was sent here for further evalu ation. She endorses +FM, and denied vaginal bleeding, loss of fluid, f/c/n/v/d, chest discomfort or d ifficulty breathing. OBGYNHx: x 2 (04/07/2002-38wks w/pre-eclampsia; 03/16/2015-36 wks) Chlamydia + 11/29/2017 treated w/azithromycin 1000mg; KAYDEN neg 02/10/2018 PMH: asthma, pre-eclampsia Meds: prenatals, albuterol prn Allergies: NKA Surghx: appendectomy-2014 Famhx: denies Sochx: denies cigarette, EtOH or elicit drug use ROS: all points reviewed and neg unless otherwise mentioned in HPI Physical exam Cardio: s1s2, RRR Lungs: cta b/l Abd: gravid, BS+, nontender Pelvic: cervix closed Ext: nonedematous A/P: 32 y/o @ 35.4wks w/JOSE of 03/28/2018 c/o contractions since 5 this am. -Cervix closed -2 L of fluid -FU UA; if positive send urine culture _ treat Patient seen and evaluated with Dr. Sandy Delgadillo, , PGY-1 Addendum 12:00 - Patient was evaluated by myself, reported sporadic contractions every 10 min or s o but increasing pelvic pressure. She had a repeat cervical exam and her cervix was still closed. Giv en the transverse position of the fetus we discussed delivery options, including scheduled vs external cephalic version. She wants to consider these options and talk them over with Dr. Barajas tomorrow at her appointment. Her NST remained reactive in triage with no concerns and patient was dis charged in stable condition. Marcie Miller MD OB Fellow OB Hospitalist on-call. With PGY1 and OB fellow I saw and examiend this patient. She was not in labor. Labor instructions. Advised to follow up this week as scheduled MAHNDO Extremities - PN: Normal Abdomen - PN: Normal Lungs - PN: Normal Heart - PN: Normal General - PN: Normal FHR - Baseline A Provider: 140 Membranes, Provider: Intact Gestation - Est Wks by US: 35.4 Pool Provider: Negative IP Hx Assessment: The History has been Reviewed and is Current EGA AdmitDate IP: 35.4 Vital Signs Provider: Reviewed; Within Normal Limits IP Chief Complaint: Uterine contractions NICHD Variability Prov Fetus A: Moderate 6-25bpm NICHD Accel Fetus A IP Provider: 15X15 FHR Category Provider Fetus A: Category I NICHD Decel Fetus A IP Provider: None Dilatation, Provider: 0
[2018-02-26 12:30] VITALS: BP 110/59; PULSE 86; RESP 18; O2SAT 98
== END 2018-02-25 12:34 | disposition home or self-care (01) ==
LOC: H.EROB2 09:51
DX: O26.93 Pregnancy related conditions, unspecified, third trimester (principal); R10.2 Pelvic and perineal pain; Z3A.35 35 weeks gestation of pregnancy
CPT/HCPCS: 81003; 96360; 99283; J7120

== ENCOUNTER 2018-03-02 13:46 | Observation (INO) | payer MEDICAID, SELFPAY ==
[2018-03-02 14:17] VITALS: BMI 42.6
[2018-03-02] MEDS ORDERED: Lactated Ringer's 1,000 ML IV SCH ×3 (14:30→15:30)
[2018-03-02 15:25] LABS: BASO # 0.1 K/uL (0.0-0.2); BASO % 0.6 % (0.0-2.0); EOS # 0.2 K/uL (0.0-0.7); EOS % 1.8 % (0.0-4.0); HEMOGLOBIN 12.4 g/dL (12.0-16.0); LYMPH # 1.9 K/uL (1.0-4.3); LYMPH % 16.8 % (20.0-40.0); MEAN CELL VOLUME 81.1 fl (81.0-99.0); MEAN CORPUSCULAR HEMOGLOBIN 26.1 pg (27.0-31.0); MEAN CORPUSCULAR HGB CONC 32.2 g/dL (33.0-37.0); MEAN PLATELET VOLUME 10.1 fl (7.2-11.7); MONO # 0.7 K/uL (0.0-0.8); MONO % 6.4 % (0.0-10.0); NEUT # 8.6 K/uL (1.8-7.0); NEUT % 74.4 % (50.0-75.0); RBC 4.76 Mil/uL (3.80-5.20); RED CELL DISTRIBUTION WIDTH 17.6 % (11.5-14.5); WHITE BLOOD COUNT 11.5 K/uL (4.8-10.8)
[2018-03-02 15:41] LABS: SQUAMOUS EPITHIAL 4 /hpf (0-5); URINE BACTERIA RARE (<OCC); URINE BILIRUBIN NEGATIVE (NEGATIVE); URINE BLOOD NEGATIVE (NEGATIVE); URINE CLARITY SLIGHTY-CLOUDY (Clear); URINE COLOR YELLOW (YELLOW); URINE GLUCOSE (UA) NEG (Normal); URINE LEUKOCYTE ESTERASE NEG Leu/uL (Negative); URINE PROTEIN 30 mg/dL (NEGATIVE); URINE UROBILINOGEN 0.2-1.0 mg/dL (0.2-1.0)
[2018-03-02 15:43] LABS: ALB/GLOB RATIO 0.9 (1.0-2.1); ALBUMIN 3.4 g/dL (3.5-5.0); ALT/SGPT 48 U/L (9-52); AST/SGOT 37 U/L (14-36); BLOOD UREA NITROGEN 10 mg/dl (7-17); GFR NON-AFRICAN AMERICAN > 60
[2018-03-02] MEDS: Lactated Ringer's 1,000 ML IV SCH (20:00)
[2018-03-03] MEDS ORDERED: Nalbuphine 20 mg/ml Inj (1 ml) IVP PRN (00:16)
[2018-03-03] MEDS: Lactated Ringer's 1,000 ML IV SCH (05:00)
--- NOTE | 2018-03-03 07:27 | OBADHP ---
Datetime: 03/02/2018 15:15 Admit Comment, IP Provider: 32 y/o @ 36.2wks w/JOSE of 03/28/2018 based on LMP c/o lower abdo ava pain that started 12 noon. Pain is associated with ireregular contrections and lower abdominal pressure. Denies LOF, VB and endorses good FM. Patient also reported blurry vision with black spots i n right eyes which lasted for about 3 minutes. Patient denies any current visiual distruibance. Denie s dizziness, f/c/n/v/d, chest discomfort or difficulty breathing. H/O:Polyhydroamnios, Chlamydia + 11/29/2017 treated w/azithromycin 1000mg; KAYDEN neg 2017, + Quad screen, Transverse Lie(Opted in for 39 WK PRIMARY CS/BTL). OBGYNHx: x 2 (04/07/2002-37wks w/pre-eclampsia; 03/16/2015-36 wks), H/o term PEC in prior pregn zahra 2002, H/o 36 wk PTL in prior 2014, Son with congenital heart disease (2002), Severe pe rsistent asthma, Pos PPD Neg 3T CXR PMH: asthma, pre-eclampsia Meds: prenatals, albuterol prn, ASA 81 mg Allergies: NKA Surghx: appendectomy-2014 Famhx: denies Sochx: denies cigarette, EtOH or elicit drug use ROS: all points reviewed and neg unless otherwise mentioned in HPI Physical exam Gen: Patient lying in bed, NAD Cardio: s1s2, RRR Lungs: cta b/l Abd: gravid, BS+, nontender Pelvic: Fingertip, soft, high Ext: Trace pedal edema, Calf nontender A/P: 32 y/o @ 35.4wks w/JOSE of 03/28/2018 c/o contractions and lower abdominal pain. Bedside US consistent with transverse lie(? breech) - EFM and toco monitoring, FHR 120 baseline with moderate variability, Category 1 tracing. - Cervix fingertip, soft, high - 2 L of fluid - F/U CBC, CMP, UA, LDH, Fibronigen - Monitor for cervical changes - Patient to be scheduled for PCS/BTL @ 39 weeks. Case discussed with attending Jorden Valencia MD, PGY1 FHR - Baseline A Provider: 120 Membranes, Provider: Intact Comments, ACOG Physical Exam: Gen: Patient lying in bed, NAD Cardio: s1s2, RRR Lungs: cta b/l Abd: gravid, BS+, nontender Pelvic: Fingertip, soft, high Ext: Trace pedal edema, Calf nontender IP Hx Assessment: The History has been Reviewed and is Current Vital Signs Provider: Reviewed; Within Normal Limits IP Chief Complaint: Uterine contractions NICHD Variability Prov Fetus A: Moderate 6-25bpm NICHD Accel Fetus A IP Provider: 15X15 FHR Category Provider Fetus A: Category I Dilatation, Provider: <1 EGA AdmitDate IP: 36.2 IP Adm Impression: , intrauterine IP Admit Plan: Observation/Evaluation Datetime: 02/25/2018 10:37 Extremities - PN: Normal Abdomen - PN: Normal Lungs - PN: Normal Heart - PN: Normal General - PN: Normal Gestation - Est Wks by US: 35.4 Pool Provider: Negative NICHD Decel Fetus A IP Provider: None
--- NOTE | 2018-03-03 07:30 | OBPN ---
Datetime: 03/03/2018 07:27 IP Progress Note Comment: Patient has been observed for several hours changes made. Patient will be discharged home patient to return if contractions increased intensity patient ruptures membranes celestina ent notes decreased movement. Labor precautions provided all questions answered patient agreed to plan of care Datetime: 03/02/2018 15:15 Membranes, Provider: Intact FHR - Baseline A Provider: 120 Vital Signs Provider: Reviewed; Within Normal Limits NICHD Accel Fetus A IP Provider: 15X15 FHR Category Provider Fetus A: Category I NICHD Variability Prov Fetus A: Moderate 6-25bpm Dilatation, Provider: <1 Datetime: 02/25/2018 10:37 Pool Provider: Negative Gestation - Est Wks by US: 35.4 NICHD Decel Fetus A IP Provider: None
[2018-03-03 12:21] VITALS: BP 110/71; PULSE 100; RESP 18; TEMP 97.5; O2SAT 98
== END 2018-03-03 07:45 | disposition home or self-care (01) ==
LOC: H.EROB2 13:46 → H.L&D 23:36
PROVIDERS: ADMIT Obstetrics & Gynecology Gynecology; ATTEND Obstetrics & Gynecology Gynecology
DX: O26.93 Pregnancy related conditions, unspecified, third trimester (principal); R10.2 Pelvic and perineal pain; Z3A.35 35 weeks gestation of pregnancy; O09.73 Supervision of high risk pregnancy due to social problems, third trimester
CPT/HCPCS: 80053; 81003; 83615; 85025; 86850; 86900; 99284; G0378; J7120

== ENCOUNTER 2018-03-03 16:22 | Inpatient (IN) | payer MEDICAID, SELFPAY ==
[2018-03-03 17:17] VITALS: BMI 42.4
[2018-03-03] MEDS ORDERED: ceFAZolin IV 2 gm in Dextrose 2 GM/50 ML BAG IVPB ONE (17:17)
[2018-03-03] MEDS ORDERED: Lactated Ringer's 1,000 ML IV ONE ×2 (17:17→17:23)
[2018-03-03] MEDS ORDERED: Lactated Ringer's 1,000 ML IV SCH (17:30)
[2018-03-03 17:38] LABS: BASO % 0.6 % (0.0-2.0); EOS # 0.2 K/uL (0.0-0.7); EOS % 2.2 % (0.0-4.0); LYMPH # 1.7 K/uL (1.0-4.3); LYMPH % 20.4 % (20.0-40.0); MEAN CELL VOLUME 80.6 fl (81.0-99.0); MEAN CORPUSCULAR HEMOGLOBIN 26.5 pg (27.0-31.0); MEAN CORPUSCULAR HGB CONC 32.9 g/dL (33.0-37.0); MEAN PLATELET VOLUME 10.1 fl (7.2-11.7); MONO # 0.6 K/uL (0.0-0.8); MONO % 6.9 % (0.0-10.0); NEUT % 69.9 % (50.0-75.0); NRBC % 0.1 % (0.0-0.0); RBC 4.51 Mil/uL (3.80-5.20); RED CELL DISTRIBUTION WIDTH 17.5 % (11.5-14.5); WHITE BLOOD COUNT 8.5 K/uL (4.8-10.8)
[2018-03-03] MEDS ORDERED: Oxytocin 30 UNIT 30 UNITS/500 ML BAG IV ONE (17:45)
[2018-03-03] MEDS ORDERED: OXYTOCIN/0.9 % NS 20 UNIT/1,000 ML BAG IV SCH (17:45)
--- NOTE | 2018-03-03 19:05 | OBADHP ---
Datetime: 03/03/2018 18:37 Pelvic Type - PN: Adequate Extremities - PN: Normal Abdomen - PN: Normal Back - PN: Normal Breast - PN: Not Done Lungs - PN: Normal Heart - PN: Normal Thyroid - PN: Normal Neurologic - PN: Normal HEENT - PN: Normal General - PN: Normal Membranes, Provider: Ruptured Comments, ACOG Physical Exam: See note Gestation - Est Wks by US: 36.3 Pool Provider: Positive Nitrazine Provider: Positive IP Chief Complaint: Uterine contractions Dilatation, Provider: 1 Effacement, Provider: 50 Station, Provider: -2 Genitourinary Exam: Normal DTRs - PN: Normal EGA AdmitDate IP: 36.3 IP Adm Impression: , intrauterine IP Admit Plan: Admit to unit; Initiate Section protocol Datetime: 03/03/2018 17:51 Admit Comment, IP Provider: 32 y/o @ 36.3wks with PMH pre-eclampsia in prev present t o EVA Due to water broke. Pt also state that she have moderate contraction but not as frequent. Pt report this is complicated with polyhydramnios, Chlamydia (treated), +Quad scree, and Transverse lie that was checked yesterday. Pt denies VB, discharge and does state baby moving. Denies dizziness, f/c/n/v/d, chest discomfort or difficulty breathing. OBGYNHx: x 2 sec complicated with pre-eclampsia, first baby boy have congenital heart disease (2002), Severe persistent asthma, Pos PPD Neg 3T CXR PMH: asthma, pre-eclampsia Meds: , albuterol prn, ASA 81 mg ( last taken 2 days ago) Allergies: NKA Surghx: appendectomy-2015 Famhx: denies Sochx: denies cigarette, EtOH or elicit drug use ROS: all points reviewed and neg unless otherwise mentioned in HPI Physical exam Gen: Patient lying in bed, NAD Cardio: s1s2, RRR Lungs: cta b/l Abd: gravid, BS+, non-tender Pelvic: Fingertip, soft, high Ext: Trace pedal edema, Calf non-tender A/P: 32 y/o @ 36.3wks present to EVA due water break, Pt US + for transverse/breech pt will be admitted for C-sec - EFM and toco monitoring, FHR 135 baseline with moderate variability, Category 1 tracing. - Cervix 1 cm, soft, high - BLT consent is in chart -Admit patient to L_D for C-sec FHR - Baseline A Provider: 135 Vital Signs Provider: Reviewed; Within Normal Limits NICHD Variability Prov Fetus A: Moderate 6-25bpm NICHD Accel Fetus A IP Provider: 15X15 FHR Category Provider Fetus A: Category I
[2018-03-03] MEDS ORDERED: Morphine 1 mg/ml preservative-free Inj(Duramorph) ONE (19:27)
[2018-03-03] MEDS ORDERED: Azithromycin 500 MG in Sodium Chloride 0.9% 250 ML IVPB STA (19:39)
[2018-03-03] MEDS ORDERED: ePHEDrine 50 mg/ml Inj ONE (19:39)
[2018-03-03] MEDS ORDERED: Phenylephrine 10 mg/ml Inj ONE (19:41)
[2018-03-03] MEDS ORDERED: Oxycodone/Acetaminophen 5/325 mg Tab PO PRN ×3 (20:53→23:32)
--- NOTE | 2018-03-03 21:02 | OBDS ---
DELIVERY PERSONNEL Delivery Doctor: Mireille Bean MD Scrub Nurse: Liz Carney OBT Progressive Care Manager: Sapna Yu RN Anesthesiologist: Darrin Weaver MD Resident: Consuelo PGPayam-1 MATERNAL INFORMATION Delivery Anesthesia: Spinal Medications in Delivery: Oxytocin Estimated Blood Loss (ml): 800 Placenta Cultured: No Maternal Complications: None Provider Comments: Surgeon: Dr. Bean Safety Supervisor; Dr. muller, Dr. Cordero pgy-1 Pre-op: Transverse lie, 36.3 wks, SROM Surgery: LTCS, BTL Post-op: same Findings: live male infant 8lbs, 9, delivered footling breech, clear fluid, grossly nml tubes ov shankar, placenta, uterus EBL:800mL UO: 350mL Anesthesia: Spinal by Dr. Weaver total input: 2L Complications: none Condition: stable Pathology: cord blood, bilateral portion of fallopian tubes LABOR SUMMARY EDC: 03/28/2018 00:00 No. Babies in Womb: 1 Attempted: No Labor Anesthesia: None LABOR INFORMATION Group B Beta Strep: Not Done MEMBRANES Membranes Rupture Method: Spontaneous Rupture of Membranes: 03/03/2018 15:00 Length of Rupture (hrs): 4.95 Amniotic Fluid Color: Clear Amniotic Fluid Amount: Large STAGES OF LABOR Stage 3 hrs: 0 Stage 3 min: 1 CSECTION DELIVERY Primary Indication: Transverse/Complex Presentation CSection Urgency: Elective CSection Incidence: Primary Labor: No Labor Elective: Elective CSection Incision: Lower Uterine Transverse BABY A INFORMATION Infant Delivery Date/Time: 03/03/2018 19:57 Born in Route : No : N/A Forceps: N/A Vacuum Extraction: N/A Shoulder Dystocia : No SHOULDER DYSTOCIA BABY A Infant Delivery Date/Time: 03/03/2018 19:57 PRESENTATION/POSITION BABY A Presentation: Transverse PLACENTA INFORMATION BABY A Placenta Delivery Time : 03/03/2018 19:58 Placenta Method of Delivery: Spontaneous Placenta Status: Delivered SCORES BABY A Heart Rate 1 min: >100 bpm Resp Effort 1 min: Good Cry Reflex Irritability 1 min: Cough or Sneeze or Pulls Away Muscle Tone 1 min: Active Motion Color 1 min: Body [place], Extremities Blue Resuscitation Effort 1 min: Tactile Stimulation SCORE 1 MIN: 9 Heart Rate 5 min: >100 bpm Resp Effort 5 min: Good Cry Reflex Irritability 5 min: Cough or Sneeze or Pulls Away Muscle Tone 5 min: Active Motion Color 5 min: Body [place], Extremities Blue Resuscitation Effort 5 min: Tactile Stimulation SCORE 5 MIN: 9 INFANT INFORMATION BABY A Gestational Age at Delivery: 36.3 Gestational Status: Outcome : Liveborn Infant Condition : Stable Infant Sex: Male IDENTIFICATION/MEDS BABY A ID Band Number: [id number] ID Band Location: Left Leg; Left Arm WEIGHT/LENGTH BABY A Birthweight (gms): 3620 Weight (lb): 8 Infant Weight (oz): 0 CORD INFORMATION BABY A No. Cord Vessels: 3 Nuchal Cord : N/A Cord Blood Taken: Yes Infant Suction: Mouth; Nose ASSESSMENT BABY A Complications: None Physical Findings at Delivery: Within Normal Limits Respirations: Appears Normal Recording Studio Set Up Worker/ALS Called : No Care By: Myesha Montano RN Transferred To: Nursery
[2018-03-03] MEDS ORDERED: Simethicone 80 mg Chewtab PO SCH (22:00)
[2018-03-04] MEDS: Lactated Ringer's 1,000 ML IV SCH ×2 (01:41→05:02)
[2018-03-04] MEDS: Simethicone 80 mg Chewtab PO SCH ×4 (05:03→22:12)
--- NOTE | 2018-03-04 05:07 | OP ---
PROCEDURE DATE: 03/03/2018 SURGEON: Willa Bean MD ASSISTANTS: Arnold Blackman MD and , PGY-1 PREOPERATIVE DIAGNOSES: 1. Thirty six weeks' gestation. 2. Transverse lie. 3. Spontaneous rupture of membranes. 4. Maternal obesity. POSTOPERATIVE DIAGNOSES: 1. Thirty six weeks' gestation. 2. Transverse lie. 3. Spontaneous rupture of membranes. 4. Maternal obesity. SURGERIES: Primary low-transverse section and bilateral tubal ligation. FINDINGS: Live male , 8 pounds and 0 ounce, 9 and 9 Apgars, delivered in footling breech presentation. Grossly normal fluid tubes, ovaries, placenta, and uterus. ESTIMATED BLOOD LOSS: 800 mL. URINE OUTPUT: 350 mL. TOTAL FLUID INPUT: 2000 mL. ANESTHESIA: Spinal. ANESTHESIOLOGIST: Chema Weaver MD COMPLICATIONS: None. CONDITION: Stable. PATHOLOGY SPECIMEN: Cord blood and portion of bilateral tubes. INDICATIONS: This is a 32-year-old G3, P2-0-0-2 at 36 weeks plus, in early labor, 1 cm dilated and confirmed for rupture of membranes. The fetus was known to be transverse lie presentation, was confirmed at labor and delivery to still be transverse lie presentation. The patient also was found to have positive quad screen, low risk maternal serum screen, and declined amnio. The patient also had a history of antepartum of maternal obesity and asthma. It is advised to the patient that because of the position that aversion was contraindicated due to increased risk, and that a primary was advised in order for delivery of the infant. The patient also verbalized that she desired bilateral tubal ligation. Consent was obtained in the clinic as well as reviewed as part of the general surgical concerns on labor and delivery. The patient reviewed the risks and benefits of procedure including risks of bleeding, infection, damage to surrounding organs such as bowel, bladder, ureter, and uterus. The patient verbalized understanding and signed an informed consent. DESCRIPTION OF PROCEDURE: The patient was taken to the OR. Ancef and azithromycin were given preoperatively, and SCDs were placed bilaterally. The patient was prepped and draped in a normal sterile fashion in dorsal supine position with a leftward tilt. A Pfannenstiel skin incision was made with a scalpel and carried through the underlying layer of fascia with the scalpel and the Bovie. The fascia was incised in the midline. The incision was extended laterally with the Bovie. Sage clamps were used to tent up the inferior aspect of this incision, which we dissected off of the underlying pyramidalis muscles with the Bovie. In a similar fashion, we tented up the superior aspect of this incision, which we dissected off of the underlying rectus abdominis muscles with the Bovie. The muscles were bluntly at the midline. The peritoneum was identified and entered bluntly. The incision was extended superiorly and inferiorly with good visualization of underlying organs. The vesicouterine peritoneum was identified, grasped with pickups, and the bladder flap was created bluntly with Metzenbaum scissors. At that point, the lower uterine segment was incised in a transverse fashion with the scalpel. The uterine cavity was entered. The incision was extended laterally with bandage scissors. The was delivered in footling breech presentation atraumatically followed by shoulders and rest of the atraumatically. Cord was clamped and cut. Infant was handed off to awaiting pediatric team. Cord blood was obtained. Placenta was extracted manually. The uterus was exteriorized, cleared of all clots. Uterine incision was repaired with 0 Vicryl. Incision and bleeding sites were reinforced with an 0 Vicryl suture along the hysterotomy site. The hysterotomy site was inspected multiple times. Two sutures had to be inserted in order to tamponade the hysterotomy site and overall appears to be hemostatic. Attention was turned bilaterally to the fallopian tubes. We used a Tan in order to aide with bilateral tubal ligation. A plain gut suture was used to do the [place] technique on both sides. Metzenbaum scissors were used to resect the portion of the tube, which was sent off on both sides to Pathology, and the tube was inspected and cauterized with Bovie and reinspected and found both sides to be hemostatic. Uterus was returned to the abdomen. Gutters were cleared of all clots. Again, the hysterotomy site and the bilateral tubal ligation sites were inspected and found to be hemostatic. The peritoneum was closed with a 2-0 Monocryl. The muscles were reapproximated with the same stitch. The small bleeders on the muscle were cauterized with the Bovie. The fascia was closed with an 0 Vicryl. Skin was closed with a 4-0 Monocryl. Sponge, lap, and needle counts were correct x4. The patient was taken to recovery room in stable condition. There were no other complications. Willa Bean MD
[2018-03-04] MEDS ORDERED: Pneumococcal 23-Valent Vaccine IM ONE ×2 (05:11→09:00)
[2018-03-04 06:18] LABS: HEMOGLOBIN 10.9 g/dL (12.0-16.0); MEAN CELL VOLUME 81.5 fl (81.0-99.0); MEAN CORPUSCULAR HEMOGLOBIN 25.9 pg (27.0-31.0); MEAN CORPUSCULAR HGB CONC 31.8 g/dL (33.0-37.0); RBC 4.21 Mil/uL (3.80-5.20); RED CELL DISTRIBUTION WIDTH 17.9 % (11.5-14.5); WHITE BLOOD COUNT 13.9 K/uL (4.8-10.8)
[2018-03-04] MEDS: Multivitamin With Minerals Tab PO SCH (08:53)
[2018-03-04] MEDS ORDERED: Multivitamin With Minerals Tab PO SCH (09:00)
--- NOTE | 2018-03-04 11:50 | OBPPN ---
Datetime: 03/04/2018 07:00 PP Pain Prov: Within normal limits PP Nausea Prov: Denies PP Flatus Prov: No PP BM Prov: No PP Breasts Prov: Not Done PP Heart Prov: Normal PP Lungs Prov: Normal PP Abdomen/Uterus Prov: Normal PP Lochia Prov: Normal PP Vulva/Perineum Prov: Not Done PP Extremities Prov: Normal PP C/S Incision Prov: Normal PP Comments Phys Exam Prov: See progress note PP Plan Prov: Continue present management PP Progress Note Prov: 32 y/o with s/p on 03/03/18 @19:58 due to complicated pregna ncy with polyhydramnios, + Quad screen and transverse lie, today on her POD1. Patient seen and examin ed at bedside this morning. Patient had an uneventful overnight. Patient reports some abdominal pain controlled with pain medication. Patient has not been OOB yet after the surgery and is still NPO. Den ies CP, SOB, HODGSON, calf pain. O: VS WNL GEN: Sitting comfortably in bed, NAD HEENT: NCAT LUNGS: CTA, no wheezing CVS: RRR, S1, S2 present normal, no murmurs. ABD: No distended, BS +, mild tenderness along incision line, firm fundus at umbilical level, dres sing removed wound clean and intact noted. EXT: LE No edema, Bipin's negative. A/P 32 y/o with s/p on 03/03/18 @19:58 due to complicated with polyhydramni os, + Quad screen and transverse lie, today on her POD1. -OOB with assistance and start ambulation -Encourage ambulation -Advance diet to Regular as tolerated -Percocet 5/325 1 to 2 tabs PO Q6h PRN for pain moderate to severe -Continue PNVitamin oral -Colace 100 PO Bid -Encourage Dany Cordero MD PGY1 OB Hospitalist on-call : Pt seen this morning on rounds. Agree with PGY1 note MAHNDO Vital Signs Provider PP: Reviewed; Within Normal Limits Datetime: 03/03/2018 07:26 PP CVA Tenderness Prov: Normal
[2018-03-04] MEDS: Oxycodone/Acetaminophen 5/325 mg Tab PO PRN (22:14)
[2018-03-05] MEDS: Simethicone 80 mg Chewtab PO SCH ×4 (03:47→21:59)
[2018-03-05] MEDS: Oxycodone/Acetaminophen 5/325 mg Tab PO PRN ×3 (03:47→16:21)
[2018-03-05] MEDS: Multivitamin With Minerals Tab PO SCH (08:08)
--- NOTE | 2018-03-05 10:06 | OBPPN ---
Datetime: 03/05/2018 07:09 PP Pain Prov: Within normal limits PP Nausea Prov: Denies PP Flatus Prov: Yes PP BM Prov: Yes PP Breasts Prov: Not Done PP Heart Prov: Normal PP Lungs Prov: Normal PP Abdomen/Uterus Prov: Normal PP Lochia Prov: Normal PP C/S Incision Prov: Normal PP Comments Phys Exam Prov: See progress note LE extremities edema+ PP Impression Prov: Normal progression PP Plan Prov: Continue present management PP Progress Note Prov: 32 y/o with s/p on 03/03/18 @19:58 due to complicated pregna ncy with polyhydramnios, + Quad screen and transverse lie, today on her POD2. Patient seen and examin ed at bedside this morning. Pt c/o pelvic controlled with medication. Patient reports tolerating regu lar diet without nausea or vomiting, patient reports that her lochia is like menses in volume. Voidin g well with no blood noted in urine, + flatus and had BM. Patient denies fever/chills, headache, blur ry vision, abdominal pain, CP/SOB, dizziness, or calf pain. O: VS WNL GEN: NAD HEENT: NCAT LUNGS: CTA, no wheezing CVS: RRR, S1, S2 present normal, no murmurs. ABD: No distended, BS +, mild tenderness along incision line, firm fundus at umbilical level, woun d clean and intact noted. EXT: pedal edema++, Bipin's negative. A/P 32 y/o with s/p on 03/03/18 @19:58 due to complicated with polyhydramni os, + Quad screen and transverse lie, doing well on her POD2. -Encourage ambulation - Regular diet -Percocet 5/325 1 to 2 tabs PO Q6h PRN for pain moderate to severe -Continue PN Vitamin oral -Colace 100 PO Bid -Encourage -D/C planning on 03/06/18 Demi Cordero MD PGY1 The patient was seen with the resident I agree with the note IP PP Procedures: Tubal Ligation Vital Signs Provider PP: Reviewed
[2018-03-06] MEDS: Simethicone 80 mg Chewtab PO SCH ×2 (04:17→09:00)
[2018-03-06] MEDS: Multivitamin With Minerals Tab PO SCH (09:00)
--- NOTE | 2018-03-06 10:32 | OBPPN ---
Datetime: 03/06/2018 06:22 PP Pain Prov: Within normal limits PP Nausea Prov: Denies PP Flatus Prov: Yes PP BM Prov: Yes PP Heart Prov: Normal PP Lungs Prov: Normal PP Abdomen/Uterus Prov: Normal PP Lochia Prov: Normal PP C/S Incision Prov: Normal PP Progress Prov: Normal PP Comments Phys Exam Prov: See Progress note PP Impression Prov: Normal progression PP Plan Prov: Discharge PP Progress Note Prov: 32 y/o with s/p on 03/03/18 @19:58 due to complicated pregna ncy with polyhydramnios, + Quad screen and transverse lie, today on her POD3. Patient seen and examin ed at bedside this AM. Pt c/o mild pain lower abdm on the surgical area that is controlled with pain medication. Patient reports tolerating regular diet without nausea or vomiting, patient reports that her lochia is like menses in volume. Voiding well with no blood noted in urine, + flatus and had BM a lready. Patient denies fever/chills, headache, blurry vision, abdominal pain, CP/SOB, dizziness, or c madyson pain. baby w/o difficulties. O: VS WNL GEN: Sitting comfortably in bed, NAD HEENT: NCAT LUNGS: CTA, no wheezing CVS: RRR, S1, S2 present normal, no murmurs. ABD: No distended, BS +, mild tenderness along incision line, firm fundus at umbilical level, woun d clean and intact noted. EXT: pedal edema+, Bipin's negative. A/P 32 y/o with s/p on 03/03/18 @19:58 due to complicated with polyhydramni os, + Quad screen and transverse lie, doing well on her POD3. -Encourage ambulation - Regular diet -Percocet 5/325 1 to 2 tabs PO Q6h PRN for pain moderate to severe -Continue PN Vitamin oral -Colace 100 PO Bid -Encourage -F/U within 1 week for and wound check with Dr Almanzar at [facility] -D/C planning today A MD Consuelo PGY1 Patient seen and examined by me today. Agree with above note. --Dr. Mclaughlin IP PP Procedures: Tubal Ligation Vital Signs Provider PP: Reviewed; Within Normal Limits
--- NOTE | 2018-03-06 10:32 | OBDCSUM ---
Datetime: 03/06/2018 09:41 Discharged to, Provider: Home Follow up at, Provider: Dr Barajas Disch Instr Activity: Normal activity; May be up to bathroom; May be up for meals; May Shower Disch Instr Diet: Regular Discharge Instructions, Provider: Routine instructions given Discharge Diagnosis, Provider: Delivery Discharge Time: 03/06/2018 10:00 Follow up in weeks, Provider: 1 week Disch Referrals: None Contraception discussed, Prov: Yes Disch Activity Restrictions: No exercising; Minimize walking; Minimize stair-climbing; No sexual act ivity; Nothing in vagina - [place], tampons, douche Discharge Comment, Provider: EGA: 36.3wk Diagnosis: C-sec With BLT risk factors: Polyhydramnios : 03/03/2018@19:57 Post- Summary: No complications during post- period. Lochia less than menses. Pt able to pass gas, BM, ambulate and pass urine. Tolerate regular diet, Fundus firm below umbilicus level. CBC post-: Discharge Instructions: PNV 1 tab PO daily Ibuprofen 600mg 1 tab prn for mild-mod pain Percocet 5-325 mg Po given for severe pain ER precautions: If excessive bleeding or fever without relief from medication, go to ED PT was urged if feeling sad, mood swing, depression, neglect of baby, suicidal thoughts, homicidal thought should go to ER or call 911 for help F/U with OBGYN in 1 week for wound care F/U 4-6 week for PP visit YSabri PGY1 Contraception after Delivery: Tubal Ligation
[2018-03-06 21:55] VITALS: BP 112/70; PULSE 90; RESP 20; TEMP 98.3; O2SAT 99
== END 2018-03-06 17:05 | disposition home or self-care (01) | DRG 651 ==
LOC: H.EROB2 16:22 → H.L&D 17:42 → H.OB/GYN 23:15
PROVIDERS: ADMIT Obstetrics & Gynecology; ATTEND Obstetrics & Gynecology
PROC: 10D00Z1 Extraction of Products of Conception, Low, Open Approach (ICD-10-PCS; principal; 2018-03-03)
PROC: 0UB70ZZ Excision of Bilateral Fallopian Tubes, Open Approach (ICD-10-PCS; 2018-03-03)
PROC: 4A1HXCZ Monitoring of Products of Conception, Cardiac Rate, External Approach (ICD-10-PCS; 2018-03-03)
PROC: 3E0234Z Introduction of Serum, Toxoid and Vaccine into Muscle, Percutaneous Approach (ICD-10-PCS; 2018-03-04)
DX: O60.14X0 Preterm labor third trimester with preterm delivery third trimester, not applicable or unspecified (principal); O32.2XX0 Maternal care for transverse and oblique lie, not applicable or unspecified; O40.3XX0 Polyhydramnios, third trimester, not applicable or unspecified; O32.8XX0 Maternal care for other malpresentation of fetus, not applicable or unspecified; O99.214 Obesity complicating childbirth; E66.8 Other obesity; Z68.41 Body mass index [BMI] 40.0-44.9, adult; Z3A.36 36 weeks gestation of pregnancy; Z37.0 Single live birth; Z30.2 Encounter for sterilization; Z23 Encounter for immunization

== ENCOUNTER 2018-05-01 15:13 | Emergency (ER) | payer MEDICAID ==
[2018-05-01 15:14] VITALS: BMI 42.4
[2018-05-01 15:32] VITALS: TEMP 98.4
--- NOTE | 2018-05-01 15:40 | ED PDOC ---
HPI: General Adult Time Seen by Provider: 05/01/18 15:39 Chief Complaint (Nursing): Cough, Cold, Congestion Chief Complaint (Provider): asthma History Per: Patient Additional Complaint(s): 32 y/o female with history of asthma presents with shortness of breath and wheezing x 2 days. Patient was seen at clinic and was sent to ED for further evaluation. Patient denies fever or chills. She is currently her 2 month old baby but baby is also tolerating breast milk. PMD: [facility] Past Medical History Reviewed: Historical Data, Nursing Documentation, Vital Signs Vital Signs: Last Vital Signs Temp 98.4 F 05/01/18 15:31 Pulse 102 H 05/01/18 15:31 Resp 18 05/01/18 15:31 BP 131/68 05/01/18 15:31 Pulse Ox 94 L 05/01/18 15:31 - Medical History PMH: Anemia, Asthma - Surgical History Surgical History: Appendectomy - Family History Family History: States: Unknown Family Hx - Immunization History Hx Tetanus Toxoid Vaccination: No Hx Influenza Vaccination: No Hx Pneumococcal Vaccination: No - Home Medications Home Medications: Ambulatory Orders Medication Instructions Recorded Aspirin [Ecotrin] 81 mg PO DAILY 03/03/18 Pnv No.95/Ferrous Fum/Folic AC 1 tab PO DAILY 03/03/18 [Prenavite] Albuterol 0.083% [Albuterol 3 ml IH Q6 #60 ml 05/01/18 Sulfate 3 Ml] predniSONE [Prednisone] 20 mg PO DAILY #18 tab 05/01/18 - Allergies Allergies/Adverse Reactions: Allergies Allergy/AdvReac Type Severity Reaction Status Date / Time No Known Allergies Allergy Verified 05/01/18 15:30 - Laboratory Results Result Diagrams: 05/01/18 16:25 05/01/18 16:25 Urine POC: Negative - ECG O2 Sat by Pulse Oximetry: 94 Pulse Ox Interpretation: Normal - Other Rad CXR X-Ray: Interpreted by Me, Viewed By Me X-Ray Interpretation: no acute finding, no interval change Nebulizer Treatments/Peak Flow - Duonebs Number of Bronchodilator Doses given?: 3 (duoneb) - Pre/Post Peak Flow Pre Treatment Peak Flow: 130 Post treatment Peak Flow: 300 - Steroid Treatment Steroid: IV (125 mg solumedrol) - Clinical Response Clinical Response: Improved Medical Decision Making Medical Decision Makin32 y/o female with asthma exacerbation Plan: CBC CMP CXR Duoneb x 3 Solumedrol 125 mg IV IVF Patient reports improvement to symptoms after meds were given. Oxygen saturation improved to 95%. Patient is requesting to go home at this time. Prescriptions provided for albuterol solution for nebulizer and prednisone. Patient was instructed to return to ER immediately if symptoms worsen, otherwise to follow- up next week with clinic. Disposition - Clinical Impression Clinical Impression: Asthma exacerbation - Patient ED Disposition Is Patient to be Admitted: No Counseled Patient/Family Regarding: Studies Performed, Diagnosis, Need For Followup, Rx Given - Disposition Referrals: [facility] [Outside] Disposition: Routine/Home Disposition Time: 18:32 Condition: STABLE Additional Instructions: Take prescription meds as directed. return to emergency room immediately if symptoms worsen, otherwise follow-up next week with clinic. Prescriptions: Albuterol 0.083% [Albuterol Sulfate 3 Ml] 3 ml IH Q6 #60 ml predniSONE [Prednisone] 20 mg PO DAILY #18 tab Instructions: Asthma, Adult (DC) Forms: Search [employer] (Welsh) Results - Diagnostic Imaging Results Radiology Results Chest X-Ray 05/01/18 16:00 IMPRESSION: Mild bibasilar atelectasis. - Lab Results Lab Results: 05/01/18 05/01/18 16:25 16:25 WBC 7.8 RBC 5.27 H Hgb 14.6 D Hct 44.1 MCV 83.7 D MCH 27.7 MCHC 33.1 RDW 17.0 H Plt Count 293 MPV 9.7 Neut % (Auto) 59.4 Lymph % (Auto) 23.6 [place] % (Auto) 4.4 Eos % (Auto) 11.6 H Baso % (Auto) 1.0 Neut # (Auto) 4.7 Lymph # (Auto) 1.8 [place] # (Auto) 0.3 Eos # (Auto) 0.9 H Baso # (Auto) 0.1 Sodium 143 Potassium 3.2 L Chloride 104 Carbon Dioxide 23 Anion Gap 19 BUN 14 Creatinine 0.7 Est GFR ( Amer) > 60 Est GFR (Non-Af Amer) > 60 Random Glucose 117 H Calcium 9.5 Total Bilirubin 0.8 AST 37 H ALT 51 Alkaline Phosphatase 163 H Total Protein 8.5 H Albumin 4.9 Globulin 3.6 Albumin/Globulin Ratio 1.4
[2018-05-01] MEDS ORDERED: Sodium Chloride 0.9% 1,000 ML IV SCH (16:00)
[2018-05-01] MEDS ORDERED: Albuterol-Ipratrop 3 mg / 0.5 (3 ml) UD INH STA (16:00)
[2018-05-01] MEDS ORDERED: methylPREDNISolone 125 MG in Sodium Chloride 0.9% 50 ML IV STA (16:00)
[2018-05-01 16:46] LABS: BASO # 0.1 K/uL (0.0-0.2); EOS # 0.9 K/uL (0.0-0.7); EOS % 11.6 % (0.0-4.0); HEMOGLOBIN 14.6 g/dL (12.0-16.0); LYMPH # 1.8 K/uL (1.0-4.3); LYMPH % 23.6 % (20.0-40.0); MEAN CELL VOLUME 83.7 fl (81.0-99.0); MEAN CORPUSCULAR HEMOGLOBIN 27.7 pg (27.0-31.0); MEAN CORPUSCULAR HGB CONC 33.1 g/dL (33.0-37.0); MEAN PLATELET VOLUME 9.7 fl (7.2-11.7); MONO # 0.3 K/uL (0.0-0.8); MONO % 4.4 % (0.0-10.0); NEUT # 4.7 K/uL (1.8-7.0); NEUT % 59.4 % (50.0-75.0); NRBC % 0.1 % (0.0-0.0); RBC 5.27 Mil/uL (3.80-5.20); WHITE BLOOD COUNT 7.8 K/uL (4.8-10.8)
--- NOTE | 2018-05-01 16:51 | RAD ---
Date of service: 05/01/2018 HISTORY: Clearance. COMPARISON: Comparison made with prior study dated 02/10/2018. FINDINGS: LUNGS: Mild bibasilar atelectasis. No focal consolidation. PLEURA: No significant pleural effusion identified, no pneumothorax apparent. CARDIOVASCULAR: No aortic atherosclerotic calcification present. Normal cardiac size. No pulmonary vascular congestion. OSSEOUS STRUCTURES: No significant abnormalities. VISUALIZED UPPER ABDOMEN: Normal. OTHER FINDINGS: None. IMPRESSION: Mild bibasilar atelectasis.
[2018-05-01 17:02] LABS: ALB/GLOB RATIO 1.4 (1.0-2.1); ALBUMIN 4.9 g/dL (3.5-5.0); ALT/SGPT 51 U/L (9-52); AST/SGOT 37 U/L (14-36); BLOOD UREA NITROGEN 14 mg/dl (7-17); CALCIUM 9.5 mg/dL (8.4-10.2); GFR NON-AFRICAN AMERICAN > 60
[2018-05-01] MEDS ORDERED: Potassium Chloride 20 mEq ER Tab PO STA (17:22)
[2018-05-01] MEDS ORDERED: Potassium Chloride 20 mEq ER Tab PO ONE (17:30)
[2018-05-01 18:12] VITALS: BP 113/71; RESP 20
[2018-05-01 18:33] VITALS: O2SAT 94
[2018-05-01 18:44] VITALS: PULSE 90
== END 2018-05-01 18:44 | disposition home or self-care (01) ==
LOC: H.ER 15:13
DX: J45.901 Unspecified asthma with (acute) exacerbation (principal)
CPT/HCPCS: 71045; 80053; 81025; 85025; 94640; 96360; 99283; J2930; J7030

== ENCOUNTER 2018-06-13 23:27 | Observation (INO) | payer SELFPAY ==
[2018-06-13] MEDS ORDERED: Magnesium Sulfate 2 gm/50 ml 2 GM/50 ML BAG IV STA (23:45)
[2018-06-13] MEDS ORDERED: Albuterol-Ipratrop 3 mg / 0.5 (3 ml) UD INH STA ×3 (23:45→23:46)
[2018-06-14 00:13] LABS: BASO # 0.2 K/uL (0.0-0.2); EOS % 12.5 % (0.0-4.0); HEMOGLOBIN 15.2 g/dL (12.0-16.0); LYMPH # 2.9 K/uL (1.0-4.3); LYMPH % 17.8 % (20.0-40.0); MEAN CELL VOLUME 85.4 fl (81.0-99.0); MEAN CORPUSCULAR HEMOGLOBIN 28.4 pg (27.0-31.0); MEAN CORPUSCULAR HGB CONC 33.2 g/dL (33.0-37.0); MEAN PLATELET VOLUME 9.6 fl (7.2-11.7); MONO # 0.7 K/uL (0.0-0.8); MONO % 4.2 % (0.0-10.0); NEUT # 10.4 K/uL (1.8-7.0); NEUT % 64.5 % (50.0-75.0); RBC 5.36 Mil/uL (3.80-5.20); RED CELL DISTRIBUTION WIDTH 15.3 % (11.5-14.5); WHITE BLOOD COUNT 16.1 K/uL (4.8-10.8)
--- NOTE | 2018-06-14 00:16 | ED PDOC ---
HPI: SOB/CHF/COPD Time Seen by Provider: 06/13/18 23:45 Chief Complaint (Nursing): Shortness Of Breath Chief Complaint (Provider): Shortness Of Breath History Per: Patient Onset/Duration Of Symptoms: Days (2) Current Respiratory Medications: Albuterol Additional Complaint(s): 33 y/o female with history of asthma presents to the ED with x2 days of worsening shortness of breath. Patient also reports associated wheezing and dry cough. She states she used her Albuterol at home with no relief. Denies any fever, vomiting, or diarrhea. Past Medical History Reviewed: Historical Data, Nursing Documentation, Vital Signs Vital Signs: Last Vital Signs Temp 99.1 F 06/13/18 23:36 Pulse 111 H 06/13/18 23:36 Resp 24 06/13/18 23:36 BP 126/85 06/13/18 23:36 Pulse Ox 91 L 06/13/18 23:36 - Medical History PMH: Anemia, Asthma Denies: Depression, Diabetes, HIV, HTN, Chronic Kidney Disease - Surgical History Surgical History: Appendectomy, - Family History Family History: States: Unknown Family Hx - Social History Current smoker - smoking cessation education provided: No Alcohol: None Drugs: Denies - Immunization History Hx Tetanus Toxoid Vaccination: No Hx Influenza Vaccination: No Hx Pneumococcal Vaccination: No - Home Medications Home Medications: Ambulatory Orders Medication Instructions Recorded Albuterol HFA [Ventolin HFA 90 1 - 2 puff INH Q4 06/14/18 mcg/actuation (8 g)] Ferrous Sulfate [Feosol] 325 mg PO DAILY 06/14/18 - Allergies Allergies/Adverse Reactions: Allergies Allergy/AdvReac Type Severity Reaction Status Date / Time No Known Allergies Allergy Verified 06/13/18 23:36 Review of Systems ROS Statement: Except As Marked, All Systems Reviewed And Found Negative Constitutional: Negative for: Fever Respiratory: Positive for: Cough, Shortness of Breath, Wheezing Gastrointestinal: Negative for: Vomiting, Diarrhea Physical Exam - Reviewed Nursing Documentation Reviewed: Yes Vital Signs Reviewed: Yes - Physical Exam Appears: Positive for: In Acute Distress Head Exam: Positive for: ATRAUMATIC, NORMAL INSPECTION, NORMOCEPHALIC Skin: Positive for: Normal Color, Warm, DRY Eye Exam: Positive for: EOMI, Normal appearance, PERRL ENT: Positive for: Normal ENT Inspection Neck: Positive for: Normal, Painless ROM Cardiovascular/Chest: Positive for: Regular Rate, Rhythm, Tachycardia. Negative for: Murmur Respiratory: Positive for: Accessory Muscle Use (subcostal and intracostal retractions), Wheezing (bilateral expiratory), Respiratory Distress (moderate) Gastrointestinal/Abdominal: Positive for: Normal Exam, Soft. Negative for: Tenderness Back: Positive for: Normal Inspection Extremity: Positive for: Normal ROM. Negative for: Pedal Edema, Deformity Neurological/Psych: Positive for: Awake, Alert, Normal Tone. Negative for: Motor/Sensory Deficits - Laboratory Results Result Diagrams: 06/14/18 00:02 06/14/18 00:02 - ECG O2 Sat by Pulse Oximetry: 91 (RA) Pulse Ox Interpretation: Abnormal - Critical Care Total Time (In Min): 30 Documented Critical Care: Time excludes all time spent performint seperately billable procedures Medical Decision Making Medical Decision Making: Time:23:45 Initial Impression:33 y/o female with respiratory distress in setting of asthma Initial Plan: * Labs * EKG * Duonebs * Solumedrol 02:44 Labs reviewed no clinically significant abnormalities. CXR demonstrates no active disease. However, patient only reports mild improvement of symptoms. On re-examination patient has persistent ronchi. Patient is to be placed on observation for respiratory distress and asthma exacerbation. Scribe Attestation: Documented by Israel Champion, acting as a scribe forDrKaren Dickson MD Provider Scribe Attestation: All medical record entries made by the Scribe were at my direction and personally dictated by me. I have reviewed the chart and agree that the record accurately reflects my personal performance of the history, physical exam, me dical decision making, and the department course for this patient. I have also personally directed, reviewed, and agree with the discharge instructions and disposition. Disposition - Clinical Impression Clinical Impression: Asthma exacerbation Discussed With : Ole Long - Disposition Disposition Time: 02:44 Condition: FAIR
[2018-06-14 00:29] LABS: ALB/GLOB RATIO 1.3 (1.0-2.1); ALBUMIN 4.9 g/dL (3.5-5.0); ALT/SGPT 35 U/L (9-52); AST/SGOT 31 U/L (14-36); BLOOD UREA NITROGEN 14 mg/dl (7-17); CALCIUM 9.5 mg/dL (8.4-10.2); GFR NON-AFRICAN AMERICAN > 60
[2018-06-14] MEDS ORDERED: Magnesium Sulfate 2 gm/50 ml 2 GM/50 ML BAG ONE (00:53)
[2018-06-14] MEDS ORDERED: Magnesium Sulfate 2 gm/50 ml 2 GM/50 ML BAG IV STA (00:55)
[2018-06-14] MEDS ORDERED: Azithromycin 500 MG in Sodium Chloride 0.9% 250 ML IVPB STA (03:08)
[2018-06-14 03:48] LABS: ABG ALLEN TEST YES; ARTERIAL BLOOD GAS HCO3 22.5 mmol/L (21-28); ARTERIAL BLOOD GAS O2 SAT 93.2 % (95-98); ARTERIAL BLOOD GAS PCO2 37 mm/Hg (35-45); ARTERIAL BLOOD GAS PH 7.38 (7.35-7.45); ARTERIAL BLOOD GAS PO2 58 mm/Hg (80-100)
--- NOTE | 2018-06-14 03:50 | CP.PCM.HP ---
<Sultan Enrique - Last Filed: 06/14/18 03:43> History of Present Illness - History of Present Illness History of Present Illness: Leonela Finleytranslator and interpreter, Shabbir [id number] Chief complaint: SOB and Wheezing HPI: 32 year old female with PMHx moderate persistent asthma with recent PFT on 05/19/18 shows mild restrictive ventilatory defects presents to [facility] ED for worsening shortness of breath and wheezing x 2 days. Patient reports she has daily wheezing, dyspnea and chest tightness for last 2 weeks and progressively getting worse. Patient was seen at [facility] clinic on 06/09/18 and was prescribed p redinisone taper, albuterol neb and inhaler. 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 States last 2 days she has been using more albuterol but symptoms are not resolving. Reports dry cough x 2 months and states it was productive cough today. Denies any fever, chills, nausea, vomiting or dizziness. Has hx hospitalization due to asthma in the past but no hx intubation. ROS: All 12 systems reviewed and negative except as mentioned in HPI PMHx: Moderate persistent Asthma, PSHx: Appendectomy Socail Hx: No illegal drug use; No Alcohol; No smoking FHx: denies any family hx asthma or lung disease Allergies: NKDA Medication: Reviewed Present on Admission - Present on Admission Any Indicators Present on Admission: No Review of Systems - Review of Systems Review of Systems: ROS: All 12 systems reviewed and negative except as mentioned in HPI Past Patient History - Infectious Disease Hx of Infectious Diseases: None - Tetanus Immunizations Tetanus Immunization: Unknown - Past Medical History & Family History Past Medical History?: Yes - Past Social History Alcohol: None Drugs: Denies - CARDIAC Hx Hypertension: No - PULMONARY Hx Asthma: Yes - NEUROLOGICAL Hx Neurological Disorder: No - HEENT Hx HEENT Problems: No - RENAL Hx Chronic Kidney Disease: No - ENDOCRINE/METABOLIC Hx Endocrine Disorders: No - HEMATOLOGICAL/ONCOLOGICAL Hx Anemia: Yes Hx Human Immunodeficiency Virus (HIV): No - INTEGUMENTARY Hx Dermatological Problems: No - MUSCULOSKELETAL/RHEUMATOLOGICAL Hx Musculoskeletal Disorders: No Hx Falls: No - GASTROINTESTINAL Hx Gastrointestinal Disorders: No - GENITOURINARY/GYNECOLOGICAL Hx Genitourinary Disorders: No - PSYCHIATRIC Hx Depression: No - SURGICAL HISTORY Hx Appendectomy: Yes - ANESTHESIA Hx Anesthesia: Yes Hx Anesthesia Reactions: No Hx Malignant Hyperthermia: No Meds Allergies/Adverse Reactions: Allergies Allergy/AdvReac Type Severity Reaction Status Date / Time No Known Allergies Allergy Verified 06/13/18 23:36 Physical Exam - Constitutional Appears: Non-toxic, No Acute Distress - Head Exam Head Exam: NORMAL INSPECTION - Eye Exam Eye Exam: Normal appearance - ENT Exam ENT Exam: Mucous Membranes Moist - Neck Exam Neck exam: Positive for: Normal Inspection - Respiratory Exam Respiratory Exam: Prolonged Expiratory Phase, Wheezes. absent: Rales, Rhonchi Additional comments: Mild Tachypneic. Speaking short full sentences and able to participate in interview. Diffuse inspiratory and expiratory wheezing with prolong expiratory phase. - Cardiovascular Exam Cardiovascular Exam: REGULAR RHYTHM, +S1, +S2 - GI/Abdominal Exam GI & Abdominal Exam: Normal Bowel Sounds, Soft. absent: Tenderness - Extremities Exam Extremities exam: Positive for: normal inspection. Negative for: calf tenderness - Neurological Exam Neurological exam: Alert, Oriented x3 - Psychiatric Exam Psychiatric exam: Normal Affect, Normal Mood - Skin Skin Exam: Normal Color Results - Vital Signs Recent Vital Signs: Last Vital Signs Temp 97.8 F 06/14/18 03:18 Pulse 100 H 06/14/18 03:18 Resp 20 06/14/18 03:18 BP 120/80 06/14/18 03:18 Pulse Ox 93 L 06/14/18 03:18 - Labs Result Diagrams: 06/14/18 00:02 06/14/18 00:02 Labs: Laboratory Results - last 24 hr 06/14/18 06/14/18 00:02 00:02 WBC 16.1 H D RBC 5.36 H Hgb 15.2 Hct 45.8 MCV 85.4 MCH 28.4 MCHC 33.2 RDW 15.3 H Plt Count 286 MPV 9.6 Neut % (Auto) 64.5 Lymph % (Auto) 17.8 L [place] % (Auto) 4.2 Eos % (Auto) 12.5 H Baso % (Auto) 1.0 Neut # (Auto) 10.4 H Lymph # (Auto) 2.9 [place] # (Auto) 0.7 Eos # (Auto) 2.0 H Baso # (Auto) 0.2 Sodium 144 Potassium 3.6 Chloride 106 Carbon Dioxide 23 Anion Gap 19 BUN 14 Creatinine 0.5 L Est GFR ( Amer) > 60 Est GFR (Non-Af Amer) > 60 Random Glucose 104 Calcium 9.5 Total Bilirubin 0.8 AST 31 ALT 35 Alkaline Phosphatase 238 H D Total Protein 8.7 H Albumin 4.9 Globulin 3.8 Albumin/Globulin Ratio 1.3 Assessment & Plan - Assessment and Plan (Free Text) Assessment: 32 years old female with PMHx moderate persistent asthma with recent PFT on 05/19/18 shows mild restrictive ventilatory defects presents to [facility] ED for worsening shortness of breath and wheezing x 2 days. Patient reports she has daily wheezing, dyspnea and chest tightness for last 2 weeks and progressively getting worse. In the ED, patient received duoneb x 3, mag sulfate 4 gm and solumedrol 125 mg IVP. Patient is admitted for acute exacerbation of asthma. Plan: Acute asthma exacerbation -Afebrile with mild tacycardia and stable BP, pulse ox 91% on arrival -s/p duoneb x 3, mag sulfate 4 gm and solumedrol 125 mg IVP in ED -CXR : bibasiar atelectasis (pending official report) -PFT on 05/19/18 shows mild restrictive ventilatory defect -Consult pulmonary --Dr. Sher--f/u recs -c/w duoneb q4hr -Start Methylprednisolone 40 mg IVP Q8H -NC Oxygen -F/U ABG, am labs SIRS -wbc 16.1, tachcardia and tachypnea -start azithromycin 500mg IVP q24 hr -IV fluid, NS @100 CC/hr -f/u CBC,blood cx DVT prophylaxis -Lovenox 30 sc daily Code status -Full code Patient seen, examined and plan discussed with Dr. Ethan Nunez, PGY-2 <Ole Long - Last Filed: 06/14/18 06:19> Results - Vital Signs Recent Vital Signs: Last Vital Signs Temp 97.6 F 06/14/18 05:07 Pulse 105 H 06/14/18 05:07 Resp 19 06/14/18 05:07 BP 132/81 06/14/18 05:07 Pulse Ox 94 L 06/14/18 05:07 - Labs Result Diagrams: 06/14/18 00:02 06/14/18 00:02 Labs: Laboratory Results - last 24 hr 06/14/18 06/14/18 06/14/18 00:02 00:02 03:39 WBC 16.1 H D RBC 5.36 H Hgb 15.2 Hct 45.8 MCV 85.4 MCH 28.4 MCHC 33.2 RDW 15.3 H Plt Count 286 MPV 9.6 Neut % (Auto) 64.5 Lymph % (Auto) 17.8 L [place] % (Auto) 4.2 Eos % (Auto) 12.5 H Baso % (Auto) 1.0 Neut # (Auto) 10.4 H Lymph # (Auto) 2.9 [place] # (Auto) 0.7 Eos # (Auto) 2.0 H Baso # (Auto) 0.2 pCO2 37 pO2 58 L HCO3 22.5 ABG pH 7.38 ABG Total CO2 23.0 ABG O2 Saturation 93.2 L ABG Base Excess -2.8 L Chin Test Yes ABG Potassium 3.7 A-a O2 Difference 45.0 Glucose 143 H Lactate 1.6 FiO2 21.0 Sodium 144 139.0 Potassium 3.6 Chloride 106 107.0 Carbon Dioxide 23 Anion Gap 19 BUN 14 Creatinine 0.5 L Est GFR ( Amer) > 60 Est GFR (Non-Af Amer) > 60 Random Glucose 104 Calcium 9.5 Total Bilirubin 0.8 AST 31 ALT 35 Alkaline Phosphatase 238 H D Total Protein 8.7 H Albumin 4.9 Globulin 3.8 Albumin/Globulin Ratio 1.3 Arterial Blood Potassium 3.7 Attending/Attestation - Attestation I have personally seen and examined this patient.: Yes I have fully participated in the care of the patient.: Yes I have reviewed all pertinent clinical information: Yes Notes (Text): I saw, examined and discussed this patient with Dr Nunez. I agree with the assessment and plan and will annotate any additional information. This is a 33 years old female with hx of SOB and wheezing diagnosed as Bronchial Asthma, came with one week of SOB worsening over the post 2 days and not respond ing to her bronchodilator. After 3 treatment of Albuterol/ Ipratropium, Methylprednisolone and Magnesium Sulphate in the ED she still has moderate to severe wheezes. PFT on 05/19/18 showed : Mild Restrictive Ventilatory defect with reduced FVC. There id normal Diffusing Capacity. No improvement in FVC after bronchodilator treatment. The conclusion is that this patient has a restrictive lung disease. We will consult with pulmonary and continue Steroids with the Bronchodilators. Because of the leukocytosis not related to steroids, we will begin empirical therapy for Atypical bacteria. 06/14/18 06:11
[2018-06-14] MEDS ORDERED: Azithromycin 500 MG IV IVPB ONE ×2 (03:57→04:02)
[2018-06-14] MEDS: Albuterol-Ipratrop 3 mg / 0.5 (3 ml) UD INH SCH ×6 (04:20→23:50)
[2018-06-14] MEDS ORDERED: Albuterol-Ipratrop 3 mg / 0.5 (3 ml) UD ONE (04:29)
[2018-06-14] MEDS: Sodium Chloride 0.9% 1,000 ML IV SCH ×2 (05:15→17:59)
--- NOTE | 2018-06-14 07:27 | CP.PCM.PN ---
Subjective - Date & Time of Evaluation Date of Evaluation: 06/14/18 Time of Evaluation: 09:00 - Subjective Subjective: Patient seen and examined at bedside this morning w/ Dr. West. There are Objective - Vital Signs/Intake and Output Vital Signs (last 24 hours): Temp Pulse Resp BP Pulse Ox 97.6 F 105 H 19 132/81 94 L 06/14/18 05:07 06/14/18 05:07 06/14/18 05:07 06/14/18 05:07 06/14/18 05:07 - Medications Medications: Current Medications Acetaminophen (Tylenol 325mg Tab) 650 mg PO Q6 PRN PRN Reason: Headache Albuterol/Ipratropium (Duoneb 3 Mg/0.5 Mg (3 Ml) Ud) 3 ml INH RQ4 MIKE Last Admin: 06/14/18 07:24 Dose: 3 ml Enoxaparin Sodium (Lovenox) 30 mg SC DAILY MIKE; Protocol Azithromycin 500 mg/ Sodium (Chloride) 250 mls @ 250 mls/hr IVPB DAILY MIKE; Protocol Sodium Chloride (Sodium Chloride 0.9%) 1,000 mls @ 100 mls/hr IV .Q10H MIKE Stop: 06/15/18 03:26 Last Admin: 06/14/18 05:15 Dose: 100 mls/hr Methylprednisolone (Solu-Medrol) 40 mg IVP Q8 MIKE Ondansetron HCl (Zofran Inj) 4 mg IVP Q6 PRN PRN Reason: Nausea/Vomiting - Labs Labs: 06/14/18 00:02 06/14/18 00:02
--- NOTE | 2018-06-14 08:30 | RAD ---
Date of service: 06/14/2018 HISTORY: SOB COMPARISON: 05/01/2018 FINDINGS: LUNGS: There is poor expiratory effort. There appears to be some mild increase in hazy density at the lung [place] which may reflect some mild bibasilar volume loss. No definite focal infiltrate is seen. No pneumothorax is noted. PLEURA: No significant pleural effusion identified, no pneumothorax apparent. CARDIOVASCULAR: No aortic atherosclerotic calcification present. Normal cardiac size. No pulmonary vascular congestion. OSSEOUS STRUCTURES: No significant abnormalities. VISUALIZED UPPER ABDOMEN: Normal. OTHER FINDINGS: Hilar regions are normal in outline. The trachea is midline. IMPRESSION: Mild bibasilar volume loss versus overlying soft tissue and poor expiratory effort. No focal infiltrate or CHF.
[2018-06-14] MEDS: MethylPREDNISolone 40 mg Vial IVP SCH ×2 (10:11→18:00)
--- NOTE | 2018-06-14 10:35 | CP.PCM.PN ---
Subjective - Date & Time of Evaluation Date of Evaluation: 06/14/18 Time of Evaluation: 10:37 - Subjective Subjective: 33 yr old female admitted with asthma exacerbation.c/o chronic dry cough and sob x 2 weeks No hx of cigarette smoking but smokes Objective - Vital Signs/Intake and Output Vital Signs (last 24 hours): Temp Pulse Resp BP Pulse Ox 97.6 F 98 H 19 115/74 96 06/14/18 07:59 06/14/18 07:59 06/14/18 07:59 06/14/18 07:59 06/14/18 07:59 - Medications Medications: Current Medications Acetaminophen (Tylenol 325mg Tab) 650 mg PO Q6 PRN PRN Reason: Headache Albuterol/Ipratropium (Duoneb 3 Mg/0.5 Mg (3 Ml) Ud) 3 ml INH RQ4 MIKE Last Admin: 06/14/18 07:24 Dose: 3 ml Enoxaparin Sodium (Lovenox) 30 mg SC DAILY MIKE; Protocol Azithromycin 500 mg/ Sodium (Chloride) 250 mls @ 250 mls/hr IVPB DAILY MIKE; Protocol Sodium Chloride (Sodium Chloride 0.9%) 1,000 mls @ 100 mls/hr IV .Q10H MIKE Stop: 06/15/18 03:26 Last Admin: 06/14/18 05:15 Dose: 100 mls/hr Methylprednisolone (Solu-Medrol) 40 mg IVP Q8 MIKE Last Admin: 06/14/18 10:11 Dose: 40 mg Ondansetron HCl (Zofran Inj) 4 mg IVP Q6 PRN PRN Reason: Nausea/Vomiting - Labs Labs: 06/14/18 00:02 06/14/18 00:02 - Constitutional Appears: No Acute Distress - Head Exam Head Exam: ATRAUMATIC, NORMAL INSPECTION, NORMOCEPHALIC - Eye Exam Eye Exam: EOMI, Normal appearance, PERRL Pupil Exam: NORMAL ACCOMODATION, PERRL - ENT Exam ENT Exam: Mucous Membranes Moist, Normal Exam - Neck Exam Neck Exam: Full ROM, Normal Inspection. absent: Lymphadenopathy - Respiratory Exam Respiratory Exam: Prolonged Expiratory Phase, Wheezes, NORMAL BREATHING PATTERN - Cardiovascular Exam Cardiovascular Exam: REGULAR RHYTHM, +S1, +S2. absent: Murmur - GI/Abdominal Exam GI & Abdominal Exam: Soft, Normal Bowel Sounds. absent: Tenderness - Rectal Exam Rectal Exam: NORMAL INSPECTION - Extremities Exam Extremities Exam: Full ROM, Normal Capillary Refill, Normal Inspection. absent: Joint Swelling, Pedal Edema - Back Exam Back Exam: NORMAL INSPECTION - Neurological Exam Neurological Exam: Alert, Awake, CN II-XII Intact, Normal Gait, Oriented x3 - Psychiatric Exam Psychiatric exam: Normal Affect, Normal Mood - Skin Skin Exam: Dry, Intact, Normal Color, Warm Assessment and Plan - Assessment and Plan (Free Text) Assessment: acute asthma uri leukocytosis Plan: aerosolized bronchodilators iv steroids and antibiotics pt wants to go home because she has a 3 month old daughter---advised to stay for 24 hrs to improve symptoms
[2018-06-14 14:19] VITALS: BMI 32.1
[2018-06-14] MEDS: Promethazine DM 12.5 mg-30 mg/10 ml Syrup PO PRN (15:37)
[2018-06-14] MEDS: Enoxaparin 40 mg Syringe SC SCH (17:59)
[2018-06-14] MEDS: Acetylcysteine 20% Inhal Soln (4ml) INH SCH (19:44)
[2018-06-15] MEDS: MethylPREDNISolone 40 mg Vial IVP SCH ×2 (00:21→11:25)
[2018-06-15] MEDS: Albuterol-Ipratrop 3 mg / 0.5 (3 ml) UD INH SCH ×3 (05:01→11:39)
[2018-06-15 06:56] LABS: BASO % 0.1 % (0.0-2.0); HEMOGLOBIN 14.5 g/dL (12.0-16.0); LYMPH # 1.4 K/uL (1.0-4.3); LYMPH % 11.3 % (20.0-40.0); MEAN CELL VOLUME 85.5 fl (81.0-99.0); MEAN CORPUSCULAR HEMOGLOBIN 28.2 pg (27.0-31.0); MEAN CORPUSCULAR HGB CONC 32.9 g/dL (33.0-37.0); MEAN PLATELET VOLUME 9.9 fl (7.2-11.7); MONO # 0.2 K/uL (0.0-0.8); MONO % 1.6 % (0.0-10.0); NEUT # 10.6 K/uL (1.8-7.0); RBC 5.14 Mil/uL (3.80-5.20); RED CELL DISTRIBUTION WIDTH 15.8 % (11.5-14.5); WHITE BLOOD COUNT 12.2 K/uL (4.8-10.8)
[2018-06-15 07:05] LABS: ALB/GLOB RATIO 1.4 (1.0-2.1); ALBUMIN 4.7 g/dL (3.5-5.0); ALT/SGPT 32 U/L (9-52); AST/SGOT 24 U/L (14-36); BLOOD UREA NITROGEN 13 mg/dl (7-17); CALCIUM 9.8 mg/dL (8.4-10.2); GFR NON-AFRICAN AMERICAN > 60
--- NOTE | 2018-06-15 07:15 | CP.PCM.PN ---
Objective - Vital Signs/Intake and Output Vital Signs (last 24 hours): Temp Pulse Resp BP Pulse Ox 98.3 F 96 H 18 121/80 91 L 06/15/18 00:12 06/15/18 00:12 06/15/18 00:12 06/15/18 00:12 06/15/18 05:00 - Medications Medications: Current Medications Acetaminophen (Tylenol 325mg Tab) 650 mg PO Q6 PRN PRN Reason: Headache Acetylcysteine (Acetylcysteine 20%) 2 ml INH RBID MIKE Last Admin: 06/14/18 19:44 Dose: 2 ml Albuterol/Ipratropium (Duoneb 3 Mg/0.5 Mg (3 Ml) Ud) 3 ml INH RQ4 MIKE Last Admin: 06/15/18 05:01 Dose: 3 ml Enoxaparin Sodium (Lovenox) 40 mg SC DAILY MIKE; Protocol Last Admin: 06/14/18 17:59 Dose: 40 mg Azithromycin 500 mg/ Sodium (Chloride) 250 mls @ 250 mls/hr IVPB DAILY MIKE; Protocol Methylprednisolone (Solu-Medrol) 40 mg IVP Q8 MIKE Last Admin: 06/15/18 00:21 Dose: 40 mg Montelukast Sodium (Singulair) 10 mg PO HS MIKE Last Admin: 06/14/18 21:32 Dose: 10 mg Ondansetron HCl (Zofran Inj) 4 mg IVP Q6 PRN PRN Reason: Nausea/Vomiting Promethazine HCl/Dextromethorphan (Phenergan Dm Syrup) 10 ml PO Q6 PRN PRN Reason: Cough Last Admin: 06/14/18 15:37 Dose: 10 ml - Labs Labs: 06/15/18 05:35 06/15/18 05:35
[2018-06-15 07:54] VITALS: BP 119/78; PULSE 98; RESP 19; TEMP 98.2; O2SAT 93
[2018-06-15] MEDS: Acetylcysteine 20% Inhal Soln (4ml) INH SCH (08:04)
[2018-06-15] MEDS ORDERED: Fluticasone-Salmeterol 250-50mcg Diskus IH SCH (09:00)
[2018-06-15] MEDS ORDERED: Azithromycin 500 MG in Sodium Chloride 0.9% 250 ML IVPB SCH (09:00)
[2018-06-15] MEDS: Enoxaparin 40 mg Syringe SC SCH (11:24)
[2018-06-15] MEDS: Promethazine DM 12.5 mg-30 mg/10 ml Syrup PO PRN (11:25)
--- NOTE | 2018-06-15 12:37 | CP.PCM.DIS ---
<Marcio Lozano - Last Filed: 06/15/18 12:29> Provider - Provider Date of Admission: 06/14/18 02:01 Attending physician: Ole Long Consults: 06/14/18 03:10 Pulmonology Consult Routine Comment: Consulting Provider: Sanjay Sher I Consulting Physician: Sanjay Sher I Reason for Consult: worsening dyspnea; PFT on 05/2018 shows restrictive patterns 06/14/18 05:44 Case Management Referral Routine Comment: Physician Instructions: Reason For Exam: Reason for Referral: Discharge Planning Time Spent in preparation of Discharge (in minutes): 15 Diagnosis - Discharge Diagnosis (1) Asthma exacerbation Status: Acute Hospital Course - Lab Results Lab Results: Micro Results 06/14/18 04:06 Blood Blood Culture - Preliminary NO GROWTH AFTER 24 HOURS Most Recent Lab Values WBC 12.2 K/uL (4.8-10.8) H 06/15/18 05:35 RBC 5.14 Mil/uL (3.80-5.20) 06/15/18 05:35 Hgb 14.5 g/dL (12.0-16.0) 06/15/18 05:35 Hct 43.9 % (34.0-47.0) 06/15/18 05:35 MCV 85.5 fl (81.0-99.0) 06/15/18 05:35 MCH 28.2 pg (27.0-31.0) 06/15/18 05:35 MCHC 32.9 g/dL (33.0-37.0) L 06/15/18 05:35 RDW 15.8 % (11.5-14.5) H 06/15/18 05:35 Plt Count 274 K/uL (130-400) 06/15/18 05:35 MPV 9.9 fl (7.2-11.7) 06/15/18 05:35 Neut % (Auto) 87.0 % (50.0-75.0) H 06/15/18 05:35 Lymph % (Auto) 11.3 % (20.0-40.0) L 06/15/18 05:35 [place] % (Auto) 1.6 % (0.0-10.0) 06/15/18 05:35 Eos % (Auto) 0.0 % (0.0-4.0) 06/15/18 05:35 Baso % (Auto) 0.1 % (0.0-2.0) 06/15/18 05:35 Neut # (Auto) 10.6 K/uL (1.8-7.0) H 06/15/18 05:35 Lymph # (Auto) 1.4 K/uL (1.0-4.3) 06/15/18 05:35 [place] # (Auto) 0.2 K/uL (0.0-0.8) 06/15/18 05:35 Eos # (Auto) 0.0 K/uL (0.0-0.7) 06/15/18 05:35 Baso # (Auto) 0.0 K/uL (0.0-0.2) 06/15/18 05:35 pCO2 37 mm/Hg (35-45) 06/14/18 03:39 pO2 58 mm/Hg (80-100) L 06/14/18 03:39 HCO3 22.5 mmol/L (21-28) 06/14/18 03:39 ABG pH 7.38 (7.35-7.45) 06/14/18 03:39 ABG Total CO2 23.0 mmol/L (22-28) 06/14/18 03:39 ABG O2 Saturation 93.2 % (95-98) L 06/14/18 03:39 ABG Base Excess -2.8 mmol/L (-2.0-3.0) L 06/14/18 03:39 Chin Test Yes 06/14/18 03:39 ABG Potassium 3.7 mmol/L (3.6-5.2) 06/14/18 03:39 A-a O2 Difference 45.0 mm/Hg 06/14/18 03:39 Sodium 139.0 mmol/L (132-148) 06/14/18 03:39 Chloride 107.0 mmol/L (98-107) 06/14/18 03:39 Glucose 143 mg/dL (65-105) H 06/14/18 03:39 Lactate 1.6 mmol/L (0.7-2.1) 06/14/18 03:39 FiO2 21.0 % 06/14/18 03:39 Sodium 140 mmol/l (132-148) 06/15/18 05:35 Potassium 4.1 MMOL/L (3.6-5.0) 06/15/18 05:35 Chloride 100 mmol/L (98-107) 06/15/18 05:35 Carbon Dioxide 24 mmol/L (22-30) 06/15/18 05:35 Anion Gap 20 (10-20) 06/15/18 05:35 BUN 13 mg/dl (7-17) 06/15/18 05:35 Creatinine 0.6 mg/dl (0.7-1.2) L 06/15/18 05:35 Est GFR ( Amer) > 60 06/15/18 05:35 Est GFR (Non-Af Amer) > 60 06/15/18 05:35 Random Glucose 140 mg/dL (65-105) H 06/15/18 05:35 Calcium 9.8 mg/dL (8.4-10.2) 06/15/18 05:35 Phosphorus 5.5 mg/dl (2.5-4.5) H 06/15/18 05:35 Magnesium 2.2 MG/DL (1.6-2.3) 06/15/18 05:35 Total Bilirubin 1.6 mg/dl (0.2-1.3) H 06/15/18 05:35 AST 24 U/L (14-36) 06/15/18 05:35 ALT 32 U/L (9-52) 06/15/18 05:35 Alkaline Phosphatase 188 U/L (38-126) H D 06/15/18 05:35 Total Protein 8.0 G/DL (6.3-8.2) 06/15/18 05:35 Albumin 4.7 g/dL (3.5-5.0) 06/15/18 05:35 Globulin 3.4 gm/dL (2.2-3.9) 06/15/18 05:35 Albumin/Globulin Ratio 1.4 (1.0-2.1) 06/15/18 05:35 Arterial Blood Potassium 3.7 mmol/L (3.6-5.2) 06/14/18 03:39 - Hospital Course Hospital Course: 32 year old female with PMHx moderate persistent asthma with recent PFT on 05/19/18 shows mild restrictive ventilatory defects presents to [facility] ED for worsening shortness of breath and wheezing x 2 days. CXR mild bibasilar volume loss versus overlying soft tissue and poor expiratory effort, no focal infiltrate or CHF. CBC shows improvement of WBC down to 12.2 from 16.1. Patient reports improvement w/ duoneb, steroids, advair, and singulair. Patient seen by pulmonology and cleared for discharge after 24h afebrile. Patient discharged w/ script for PO medrol dose pack and PO azithromycin 250 mg PO for 5 days. The patient has been seen, examined, and deemed medically fit for discharge home. Patient has scheduled follow up appointment for 06/18/2018 @ 11:00. The patient was counseled to be evaluated as an outpatient by a pul tube former operator to review asthma diagnosis due to PFT results. Discharge Exam - Head Exam Head Exam: ATRAUMATIC, NORMAL INSPECTION, NORMOCEPHALIC - Eye Exam Eye Exam: EOMI Pupil Exam: NORMAL ACCOMODATION - ENT Exam ENT Exam: Mucous Membranes Moist - Neck Exam Neck exam: Full Rom - Respiratory Exam Respiratory Exam: Wheezes (faint wheezes, much improved from yesterday). absent: Rales - Cardiovascular Exam Cardiovascular Exam: REGULAR RHYTHM, RRR, +S1, +S2. absent: Tachycardia - GI/Abdominal Exam GI & Abdominal Exam: Normal Bowel Sounds, Soft. absent: Tenderness - Extremities Exam Extremities exam: normal inspection - Neurological Exam Neurological exam: Alert, CN II-XII Intact, Normal Gait, Oriented x3 - Skin Skin Exam: Dry, Intact, Normal Color, Warm Discharge Plan - Discharge Medications Prescriptions: Azithromycin 250 mg PO DAILY 5 Days #5 tablet Methylprednisolone [Medrol Dose Pack (21 tabs)] 4 mg PO DAILY #21 mg - Follow Up Plan Condition: FAIR Disposition: HOME/ ROUTINE Instructions: Prednisone, Asthma (DC) Additional Instructions: Advised to avoid breast feeding and just pump and discard the next 1 wk return to ED if symptoms recurs ff up in 1 wk at the Clinic <Becka West - Last Filed: 06/15/18 14:14> Provider - Provider Date of Admission: 06/14/18 02:01 Attending physician: Ole Long Consults: 06/14/18 03:10 Pulmonology Consult Routine Comment: Consulting Provider: Sanjay Sher I Consulting Physician: Sher,Grace I Reason for Consult: worsening dyspnea; PFT on 05/2018 shows restrictive patterns 06/14/18 05:44 Case Management Referral Routine Comment: Physician Instructions: Reason For Exam: Reason for Referral: Discharge Planning Hospital Course - Lab Results Lab Results: Micro Results 06/14/18 04:06 Blood Blood Culture - Preliminary NO GROWTH AFTER 24 HOURS Most Recent Lab Values WBC 12.2 K/uL (4.8-10.8) H 06/15/18 05:35 RBC 5.14 Mil/uL (3.80-5.20) 06/15/18 05:35 Hgb 14.5 g/dL (12.0-16.0) 06/15/18 05:35 Hct 43.9 % (34.0-47.0) 06/15/18 05:35 MCV 85.5 fl (81.0-99.0) 06/15/18 05:35 MCH 28.2 pg (27.0-31.0) 06/15/18 05:35 MCHC 32.9 g/dL (33.0-37.0) L 06/15/18 05:35 RDW 15.8 % (11.5-14.5) H 06/15/18 05:35 Plt Count 274 K/uL (130-400) 06/15/18 05:35 MPV 9.9 fl (7.2-11.7) 06/15/18 05:35 Neut % (Auto) 87.0 % (50.0-75.0) H 06/15/18 05:35 Lymph % (Auto) 11.3 % (20.0-40.0) L 06/15/18 05:35 [place] % (Auto) 1.6 % (0.0-10.0) 06/15/18 05:35 Eos % (Auto) 0.0 % (0.0-4.0) 06/15/18 05:35 Baso % (Auto) 0.1 % (0.0-2.0) 06/15/18 05:35 Neut # (Auto) 10.6 K/uL (1.8-7.0) H 06/15/18 05:35 Lymph # (Auto) 1.4 K/uL (1.0-4.3) 06/15/18 05:35 [place] # (Auto) 0.2 K/uL (0.0-0.8) 06/15/18 05:35 Eos # (Auto) 0.0 K/uL (0.0-0.7) 06/15/18 05:35 Baso # (Auto) 0.0 K/uL (0.0-0.2) 06/15/18 05:35 pCO2 37 mm/Hg (35-45) 06/14/18 03:39 pO2 58 mm/Hg (80-100) L 06/14/18 03:39 HCO3 22.5 mmol/L (21-28) 06/14/18 03:39 ABG pH 7.38 (7.35-7.45) 06/14/18 03:39 ABG Total CO2 23.0 mmol/L (22-28) 06/14/18 03:39 ABG O2 Saturation 93.2 % (95-98) L 06/14/18 03:39 ABG Base Excess -2.8 mmol/L (-2.0-3.0) L 06/14/18 03:39 Chin Test Yes 06/14/18 03:39 ABG Potassium 3.7 mmol/L (3.6-5.2) 06/14/18 03:39 A-a O2 Difference 45.0 mm/Hg 06/14/18 03:39 Sodium 139.0 mmol/L (132-148) 06/14/18 03:39 Chloride 107.0 mmol/L (98-107) 06/14/18 03:39 Glucose 143 mg/dL (65-105) H 06/14/18 03:39 Lactate 1.6 mmol/L (0.7-2.1) 06/14/18 03:39 FiO2 21.0 % 06/14/18 03:39 Sodium 140 mmol/l (132-148) 06/15/18 05:35 Potassium 4.1 MMOL/L (3.6-5.0) 06/15/18 05:35 Chloride 100 mmol/L (98-107) 06/15/18 05:35 Carbon Dioxide 24 mmol/L (22-30) 06/15/18 05:35 Anion Gap 20 (10-20) 06/15/18 05:35 BUN 13 mg/dl (7-17) 06/15/18 05:35 Creatinine 0.6 mg/dl (0.7-1.2) L 06/15/18 05:35 Est GFR ( Amer) > 60 06/15/18 05:35 Est GFR (Non-Af Amer) > 60 06/15/18 05:35 Random Glucose 140 mg/dL (65-105) H 06/15/18 05:35 Calcium 9.8 mg/dL (8.4-10.2) 06/15/18 05:35 Phosphorus 5.5 mg/dl (2.5-4.5) H 06/15/18 05:35 Magnesium 2.2 MG/DL (1.6-2.3) 06/15/18 05:35 Total Bilirubin 1.6 mg/dl (0.2-1.3) H 06/15/18 05:35 AST 24 U/L (14-36) 06/15/18 05:35 ALT 32 U/L (9-52) 06/15/18 05:35 Alkaline Phosphatase 188 U/L (38-126) H D 06/15/18 05:35 Total Protein 8.0 G/DL (6.3-8.2) 06/15/18 05:35 Albumin 4.7 g/dL (3.5-5.0) 06/15/18 05:35 Globulin 3.4 gm/dL (2.2-3.9) 06/15/18 05:35 Albumin/Globulin Ratio 1.4 (1.0-2.1) 06/15/18 05:35 Arterial Blood Potassium 3.7 mmol/L (3.6-5.2) 06/14/18 03:39 Attending/Attestation - Attestation I have personally seen and examined this patient.: Yes I have fully participated in the care of the patient.: Yes I have reviewed all pertinent clinical information, including history, physical exam and plan: Yes Notes (Text): Acute Asthma exacerbation History of Mild intermittent Asthma Further work up as outpt for Restrictive Lung Disease - Pt received IV Solumedrol and Albuterol nebulizer treatments and Azithromycin -CXR : no infiltrate - SOB and cough improved - Seen by Pulmonary -advised pt to not breastfeed for 1 wk -ff up [facility] in 1 wk
--- NOTE | 2018-06-15 18:48 | CARD ---
APPROVED REPORT Date of service: 06/13/2018 EKG Measurement Heart [id number] <Conclusion> Sinus tachycardia Otherwise normal ECG
== END 2018-06-15 14:30 | disposition home or self-care (01) ==
LOC: H.ER 23:27 → H.ERHOLD 06-14 02:01 → H.MEDSURG1 06-14 04:36
PROVIDERS: ADMIT Internal Medicine; ATTEND Internal Medicine
DX: J45.41 Moderate persistent asthma with (acute) exacerbation (principal); J06.9 Acute upper respiratory infection, unspecified; D72.829 Elevated white blood cell count, unspecified; Z77.22 Contact with and (suspected) exposure to environmental tobacco smoke (acute) (chronic)
CPT/HCPCS: 36415; 71045; 80053; 81025; 82803; 83735; 84100; 85025; 87040; 93005; 94640; 94667; 94668; 96361; 96365; 96366; 96367; 96372; 96375; 96376; 99285; G0378; J0456; J1650; J2920; J2930; J7030